=== PATIENT | female | born 1960 | race American Indian/Alaskan Native ===

== ENCOUNTER 2020-09-22 13:28 | Outpatient (CLI) | payer MEDICARE ==
--- NOTE | 2020-09-22 15:26 | XRay Report ---
RIGHT KNEE 3 VIEWS INDICATION / CLINICAL INFORMATION: right knee pain. COMPARISON: None available. FINDINGS: Moderate degenerative change, with significant loss of articular space medially. Hypertrophic spurrin g in the patellofemoral joint. No acute fracture. No evidence of significant joint effusion or hemart hrosis. Signer Name: Jordan Dale MD Signed: 09/22/2020 3:22 PM Workstation Name: [id number]
== END 2020-09-22 13:29 | disposition home or self-care (01) ==
LOC: XRAY 13:28
DX: M17.11 Unilateral primary osteoarthritis, right knee (principal); M76.9 Unspecified enthesopathy, lower limb, excluding foot

== ENCOUNTER 2022-03-13 03:17 | Inpatient (IN) | payer MEDICARE ==
[2022-03-13 04:23] LABS: Hematocrit 30.7 % (30.3-42.9); Hemoglobin 9.8 gm/dl (10.1-14.3); Mean Corpuscular HGB Conc 32 % (30-34); Mean Corpuscular Volume 80 fl (79-97); Platelet Count 400 K/mm3 (140-440); Red Blood Count 3.83 M/mm3 (3.65-5.03); Red Cell Distribution Width 16.5 % (13.2-15.2)
[2022-03-13 04:28] LABS: Albumin 3.7 g/dL (3.9-5); Calcium 9.4 mg/dL (8.4-10.2)
[2022-03-13 05:23] LABS: Anisocytosis 1+; Eosinophils % (Manual) 0 % (0.0-4.3); Platelet Estimate Consistent w Auto; Total Cells Counted 100
[2022-03-13] MEDS ORDERED: SODIUM CHLORIDE 0.9% 1000 ML 1,000 ML IV ONE (12:21)
[2022-03-13] MEDS ORDERED: metroNIDAZOLE/NS 500 MG/100 ML 500 MG/100 ML BAG IV ONE (12:21)
[2022-03-13] MEDS ORDERED: SODIUM CHLORIDE 0.9% IV ONE (12:24)
[2022-03-13] MEDS ORDERED: ONDANSETRON 4 MG/2 ML INJ IV ONE (13:02)
[2022-03-13] MEDS ORDERED: MORPHINE 4 MG/1 ML INJ IV ONE (13:02)
[2022-03-13 15:09] LABS: Bilirubin,Urine NEG (Negative); Blood,Urine NEG (Negative); Color,Urine Yellow (Yellow); Protein,Urine <15 mg/dL mg/dL (Negative); Urobilinogen,Urine < 2.0 mg/dL (<2.0)
[2022-03-13 15:11] LABS: Hyaline Casts,Urine 26 /LPF; Mucus,Urine FEW /HPF
--- NOTE | 2022-03-13 15:13 | Cat Scan Report ---
CT ABDOMEN AND PELVIS WITH CONTRAST INDICATION: abd pain with n/v CONTRAST: 100 cc Omnipaque 300 IV COMPARISON: None available. All CT scans at this location are performed using CT dose reduction for ALARA by means of automated e xposure control. NOTE: Resolution is decreased and artifact is introduced by the patient's size. FINDINGS: Lung bases show mild atelectatic changes but no definite pneumonic infiltrates. No pneumope ritoneum. Gallbladder removed. Mild extrahepatic and intrahepatic biliary prominence with common bile duct at the level the head of the pancreas measuring 8 mm. Liver is enlarged with a length of 21.4 c m but no focal lesions seen. Spleen not enlarged. Tiny probable left renal cyst. Minimal right nephro lithiasis without obstructive change seen. No other abdominal masses. No lymphadenopathy. No bowel obstruction. Colonic diverticulosis most noticeable in the sigmoid area. In the upper to mid sigmoid area in this area of diverticulosis there is moderate inflammation and wall thickening consi stent with acute diverticulitis. I do not clearly see intramural abscess or significant perforation l ocally. No evidence of free perforation. Mild stranding in the area but no organized fluid collection s. No obstructive change. Appendix not visualized. No other pelvic masses though possibly there is a small left ovarian cyst measuring 17 mm. IMPRESSION: 1. Moderate acute sigmoid diverticulitis without definite complication 2. Small left ovarian cyst unusual at the patient's age. Recommend follow-up but probably this is clarissa ign. 3. Right minimal nephrolithiasis without acute change seen 4. Mild biliary prominence in a postcholecystectomy patient of unknown chronicity. Recommend clinical correlation. Signer Name: Brian Rivas MD Signed: 03/13/2022 3:08 PM Workstation Name: [id number]
--- NOTE | 2022-03-13 15:35 | Emergency Department Report ---
ED Abdominal Pain HPI - General Chief Complaint: Abdominal Pain Stated Complaint: RIGHT SIDE PAIN Time Seen by Provider: 03/13/22 12:21 Source: patient Mode of arrival: Ambulatory Limitations: No Limitations - History of Present Illness Initial Comments: This is a 61-year-old female nontoxic, well nourished in appearance, no acute signs of distress presents to the ED with c/o of nausea and vomiting and abdominal pain several days. Patient describes vomiting as food content and yellow gastric acid. Patient describes abdominal pain as cramping and aching with level of 8/10 diffuse. Patient denies chest pain, short of breath, fever, hemoptysis, blood in stool, chills, headache, stiff neck, numbness or tingling. Patient denies any diarrhea or constipation. Denies any blood in stool. Patient denies any recent travels. Patient stated allergies to sulfa. MD Complaint: abdominal pain -: days(s) Location: diffuse Radiation: none Migration to: no migration Severity: mild Severity scale (0 -10): 8 Quality: cramping, aching Consistency: constant Improves With: nothing Worsens With: nothing Associated Symptoms: nausea, vomiting. denies: diarrhea, fever, chills, constipation, dysuria, hematemesis, hematochezia, melena, hematuria, anorexia, syncope - Related Data Allergies Allergy/AdvReac Type Severity Reaction Status Date / Time Sulfa (Sulfonamide Allergy Hives Verified 03/13/22 03:20 Antibiotics) ED Review of Systems ROS: Stated complaint: RIGHT SIDE PAIN Other details as noted in HPI Comment: All other systems reviewed and negative Constitutional: denies: chills, fever Eyes: denies: eye pain, eye discharge, vision change ENT: denies: ear pain, throat pain Respiratory: denies: cough, shortness of breath, wheezing Cardiovascular: denies: chest pain, palpitations Endocrine: no symptoms reported Gastrointestinal: abdominal pain, nausea, vomiting. denies: diarrhea, constipation, hematemesis, melena, hematochezia Genitourinary: denies: urgency, dysuria, discharge Musculoskeletal: denies: back pain, joint swelling, arthralgia Skin: denies: rash, lesions Neurological: denies: headache, weakness, paresthesias Psychiatric: denies: anxiety, depression Hematological/Lymphatic: denies: easy bleeding, easy bruising ED Past Medical Hx - Past Medical History Previous Medical History?: Yes Hx Hypertension: Yes - Surgical History Past Surgical History?: No - Social History Smoking Status: Never Smoker Substance Use Type: None ED Physical Exam - General Limitations: No Limitations General appearance: alert, in no apparent distress - Head Head exam: Present: atraumatic, normocephalic - Eye Eye exam: Present: normal appearance - Neck Neck exam: Present: normal inspection, full ROM. Absent: tenderness, meningismus, lymphadenopathy - Respiratory Respiratory exam: Present: normal lung sounds bilaterally. Absent: respiratory distress, wheezes, rales, rhonchi, stridor, chest wall tenderness, accessory muscle use, decreased breath sounds, prolonged expiratory - Cardiovascular Cardiovascular Exam: Present: normal rhythm, tachycardia, normal heart sounds. Absent: irregular rhythm, systolic murmur, diastolic murmur, rubs, gallop - GI/Abdominal GI/Abdominal exam: Present: soft, tenderness (diffuse), normal bowel sounds. Absent: distended, guarding, rebound, rigid, diminished bowel sounds - Extremities Exam Extremities exam: Present: normal inspection, full ROM, normal capillary refill. Absent: tenderness - Back Exam Back exam: Present: normal inspection, full ROM. Absent: tenderness, CVA tenderness (R), CVA tenderness (L), muscle spasm, paraspinal tenderness, vertebral tenderness, rash noted - Neurological Exam Neurological exam: Present: alert, oriented X3, normal gait - Psychiatric Psychiatric exam: Present: normal affect, normal mood - Skin Skin exam: Present: warm, dry, intact, normal color. Absent: rash ED Course Vital Signs 03/13/22 03/13/22 03:20 16:54 Temperature 99.0 F 98.0 F Pulse Rate 104 H 94 H Respiratory 18 20 Rate Blood Pressure 95/54 Blood Pressure 112/53 [Left] O2 Sat by Pulse 96 96 Oximetry - Reevaluation(s) Reevaluation #1: 03/13/22 15:33 Patient is speaking in full sentences with no signs of distress noted. - Consultations Consultation #1: 03/13/22 15:36 Patient has been consulted with Dr. Fregoso about patient history, physical exam, and labs/imaging results and accepts patient to services. Consultation #2: 03/13/22 15:44 Patient has been consulted with Jerod Fisher (general surgery) about patient history, physical exam, and labs/imaging results and agrees for admission with hospitalist. ED Medical Decision Making - Lab Data Result diagrams: 03/13/22 03:48 03/13/22 03:48 Lab Results 03/13/22 03/13/22 03/13/22 Range/Units 03:48 03:48 13:14 WBC 18.3 H (4.5-11.0) K/mm3 RBC 3.83 (3.65-5.03) M/mm3 Hgb 9.8 L (10.1-14.3) gm/dl Hct 30.7 (30.3-42.9) % MCV 80 (79-97) fl MCH 26 L (28-32) pg MCHC 32 (30-34) % RDW 16.5 H (13.2-15.2) % Plt Count 400 (140-440) K/mm3 Add Manual Diff Complete Total Counted 100 Seg Neuts % (Manual) 84.0 H (40.0-70.0) % Band Neutrophils % 0 % Lymphocytes % (Manual) 9.0 L (13.4-35.0) % Reactive Lymphs % (Man) 0 % Monocytes % (Manual) 6.0 (0.0-7.3) % Eosinophils % (Manual) 0 (0.0-4.3) % Basophils % (Manual) 1.0 (0.0-1.8) % Metamyelocytes % 0 % Myelocytes % 0 % Promyelocytes % 0 % Blast Cells % 0 % Nucleated RBC % Not Reportable Seg Neutrophils # Man 15.4 H (1.8-7.7) K/mm3 Band Neutrophils # 0.0 K/mm3 Lymphocytes # (Manual) 1.6 (1.2-5.4) K/mm3 Abs React Lymphs (Man) 0.0 K/mm3 Monocytes # (Manual) 1.1 H (0.0-0.8) K/mm3 Eosinophils # (Manual) 0.0 (0.0-0.4) K/mm3 Basophils # (Manual) 0.2 H (0.0-0.1) K/mm3 Metamyelocytes # 0.0 K/mm3 Myelocytes # 0.0 K/mm3 Promyelocytes # 0.0 K/mm3 Blast Cells # 0.0 K/mm3 WBC Morphology Not Reportable Hypersegmented Neuts Not Reportable Hyposegmented Neuts Not Reportable Hypogranular Neuts Not Reportable Smudge Cells Not Reportable Toxic Granulation Not Reportable Toxic Vacuolation Not Reportable Dohle Bodies Not Reportable Pelger-Huet Anomaly Not Reportable Niraj Rods Not Reportable Platelet Estimate Consistent w auto Clumped Platelets Not Reportable Plt Clumps, EDTA Not Reportable Large Platelets Not Reportable Giant Platelets Not Reportable Platelet Satelliting Not Reportable Plt Morphology Comment Not Reportable RBC Morphology Not Reportable Dimorphic RBCs Not Reportable Polychromasia Not Reportable Hypochromasia Not Reportable Poikilocytosis Not Reportable Anisocytosis 1+ Microcytosis Not Reportable Macrocytosis Not Reportable Spherocytes Not Reportable Pappenheimer Bodies Not Reportable Sickle Cells Not Reportable Target Cells Not Reportable Tear Drop Cells Not Reportable Ovalocytes Not Reportable Helmet Cells Not Reportable Hamm-[place] Bodies Not Reportable [place] Rings Not Reportable [place] Cells Not Reportable Bite Cells Not Reportable Crenated Cell Not Reportable Elliptocytes Not Reportable Acanthocytes (Spur) Not Reportable Rouleaux Not Reportable Hemoglobin C Crystals Not Reportable Schistocytes Not Reportable Malaria parasites Not Reportable Chacorta Bodies Not Reportable Hem Pathologist Commnt No Sodium 136 L (137-145) mmol/L Potassium 3.6 (3.6-5.0) mmol/L Chloride 97.5 L (98-107) mmol/L Carbon Dioxide 25 (22-30) mmol/L Anion Gap 17 mmol/L BUN 19 H (7-17) mg/dL Creatinine 1.2 (0.6-1.2) mg/dL Estimated GFR 55 ml/min BUN/Creatinine Ratio 16 % Glucose 127 H (65-100) mg/dL Lactic Acid (0.7-2.0) mmol/L Calcium 9.4 (8.4-10.2) mg/dL Total Bilirubin 0.30 (0.1-1.2) mg/dL AST 14 (5-40) units/L ALT 20 (7-56) units/L Alkaline Phosphatase 130 H (35-129) units/L Total Protein 7.5 (6.3-8.2) g/dL Albumin 3.7 L (3.9-5) g/dL Albumin/Globulin Ratio 1.0 % Lipase 51 (13-60) units/L Urine Color (Yellow) Urine Turbidity (Clear) Urine pH (5.0-7.0) Ur Specific [place] (1.003-1.030) Urine Protein (Negative) mg/dL Urine Glucose (UA) (Negative) mg/dL Urine Ketones (Negative) mg/dL Urine Blood (Negative) Urine Nitrite (Negative) Urine Bilirubin (Negative) Urine Urobilinogen (<2.0) mg/dL Ur Leukocyte Esterase (Negative) Urine WBC (Auto) (0.0-6.0) /HPF Urine RBC (Auto) (0.0-6.0) /HPF U Epithel Cells (Auto) (0-13.0) /HPF Hyaline Casts /LPF Urine Mucus /HPF 03/13/22 03/13/22 Range/Units 13:14 Unknown WBC (4.5-11.0) K/mm3 RBC (3.65-5.03) M/mm3 Hgb (10.1-14.3) gm/dl Hct (30.3-42.9) % MCV (79-97) fl MCH (28-32) pg MCHC (30-34) % RDW (13.2-15.2) % Plt Count (140-440) K/mm3 Add Manual Diff Total Counted Seg Neuts % (Manual) (40.0-70.0) % Band Neutrophils % % Lymphocytes % (Manual) (13.4-35.0) % Reactive Lymphs % (Man) % Monocytes % (Manual) (0.0-7.3) % Eosinophils % (Manual) (0.0-4.3) % Basophils % (Manual) (0.0-1.8) % Metamyelocytes % % Myelocytes % % Promyelocytes % % Blast Cells % % Nucleated RBC % Seg Neutrophils # Man (1.8-7.7) K/mm3 Band Neutrophils # K/mm3 Lymphocytes # (Manual) (1.2-5.4) K/mm3 Abs React Lymphs (Man) K/mm3 Monocytes # (Manual) (0.0-0.8) K/mm3 Eosinophils # (Manual) (0.0-0.4) K/mm3 Basophils # (Manual) (0.0-0.1) K/mm3 Metamyelocytes # K/mm3 Myelocytes # K/mm3 Promyelocytes # K/mm3 Blast Cells # K/mm3 WBC Morphology Hypersegmented Neuts Hyposegmented Neuts Hypogranular Neuts Smudge Cells Toxic Granulation Toxic Vacuolation Dohle Bodies Pelger-Huet Anomaly Niraj Rods Platelet Estimate Clumped Platelets Plt Clumps, EDTA Large Platelets Giant Platelets Platelet Satelliting Plt Morphology Comment RBC Morphology Dimorphic RBCs Polychromasia Hypochromasia Poikilocytosis Anisocytosis Microcytosis Macrocytosis Spherocytes Pappenheimer Bodies Sickle Cells Target Cells Tear Drop Cells Ovalocytes Helmet Cells Hamm-[place] Bodies [place] Rings Tate Cells Bite Cells Crenated Cell Elliptocytes Acanthocytes (Spur) Rouleaux Hemoglobin C Crystals Schistocytes Malaria parasites Chacorta Bodies Hem Pathologist Commnt Sodium (137-145) mmol/L Potassium (3.6-5.0) mmol/L Chloride (98-107) mmol/L Carbon Dioxide (22-30) mmol/L Anion Gap mmol/L BUN (7-17) mg/dL Creatinine (0.6-1.2) mg/dL Estimated GFR ml/min BUN/Creatinine Ratio % Glucose (65-100) mg/dL Lactic Acid 0.80 (0.7-2.0) mmol/L Calcium (8.4-10.2) mg/dL Total Bilirubin (0.1-1.2) mg/dL AST (5-40) units/L ALT (7-56) units/L Alkaline Phosphatase (35-129) units/L Total Protein (6.3-8.2) g/dL Albumin (3.9-5) g/dL Albumin/Globulin Ratio % Lipase (13-60) units/L Urine Color Yellow (Yellow) Urine Turbidity Slightly-cloudy (Clear) Urine pH 5.0 (5.0-7.0) Ur Specific [place] 1.015 (1.003-1.030) Urine Protein <15 mg/dl (Negative) mg/dL Urine Glucose (UA) Neg (Negative) mg/dL Urine Ketones Neg (Negative) mg/dL Urine Blood Neg (Negative) Urine Nitrite Neg (Negative) Urine Bilirubin Neg (Negative) Urine Urobilinogen < 2.0 (<2.0) mg/dL Ur Leukocyte Esterase Neg (Negative) Urine WBC (Auto) 6.0 (0.0-6.0) /HPF Urine RBC (Auto) 3.0 (0.0-6.0) /HPF U Epithel Cells (Auto) 3.0 (0-13.0) /HPF Hyaline Casts 26 /LPF Urine Mucus Few /HPF - Radiology Data [facility] [address] [place] [address] Cat Scan Report Signed Patient: POORNIMA SCOTT MR#: [id number] : 1960 Acct:[id number] Age/Sex: 61 / F ADM Date: 03/13/22 Loc: ED Attending Dr: Ordering Physician: TIMO FIGUEROA NP Date of Service: 03/13/22 Procedure(s): CT abdomen pelvis w con Accession Number(s): [id number] cc: TIMO FIGUEROA NP CT ABDOMEN AND PELVIS WITH CONTRAST INDICATION: abd pain with n/v CONTRAST: 100 cc Omnipaque 300 IV COMPARISON: None available. All CT scans at this location are performed using CT dose reduction for ALARA by means of automated exposure control. NOTE: Resolution is decreased and artifact is introduced by the patient's size. FINDINGS: Lung bases show mild atelectatic changes but no definite pneumonic infiltrates. No pneumoperitoneum. Gallbladder removed. Mild extrahepatic and intrahepatic biliary prominence with common bile duct at the level the head of the pancreas measuring 8 mm. Liver is enlarged with a length of 21.4 cm but no focal lesions seen. Spleen not enlarged. Tiny probable left renal cyst. Minimal right nephrolithiasis without obstructive change seen. No other abdominal masses. No lymphadenopathy. No bowel obstruction. Colonic diverticulosis most noticeable in the sigmoid area. In the upper to mid sigmoid area in this area of diverticulosis there is moderate inflammation and wall thickening consistent with acute diverticulitis. I do not clearly see intramural abscess or significant perforation locally. No evidence of free perforation. Mild stranding in the area but no organized fluid collections. No obstructive change. Appendix not visualized. No other pelvic masses though possibly there is a small left ovarian cyst measuring 17 mm. IMPRESSION: 1. Moderate acute sigmoid diverticulitis without definite complication 2. Small left ovarian cyst unusual at the patient's age. Recommend follow-up but probably this is benign. 3. Right minimal nephrolithiasis without acute change seen 4. Mild biliary prominence in a postcholecystectomy patient of unknown chronicity. Recommend clinical correlation. Signer Name: Brian Rivas MD Signed: 03/13/2022 3:08 PM Workstation Name: [id number] Transcribed By: MONIK Dictated By: Brian Rivas MD Electronically Authenticated By: Brian Rivas MD Signed Date/Time: 03/13/22 1508 DD/ 1459 TD/TT: - Medical Decision Making 61-year-old female that presents with acute diverticulitis of the sigmoid colon. Currently patient is stable and was examined by me. Patient received medical treatment with IV antibiotics in the ER. Patient is notified of the imaging results with no questions noted by the patient. Patient admitted with hospitalist. Consulted with surgery which agrees to admission and stated will see patient in follow-up. At time of admission, the patient does not seem toxic or ill in appearance. No acute signs of distress noted. Patient agrees to admission treatment plan of care. No further questions noted by the patient. Critical care attestation.: If time is entered above; I have spent that time in minutes in the direct care of this critically ill patient, excluding procedure time. ED Disposition Clinical Impression: Diverticulitis of sigmoid colon Disposition: ADMITTED INPATIENT Is pt being admited?: Yes Condition: Stable Instructions: Abdominal Pain (ED) Referrals: IVAN TRIPP MD [Primary Care Provider] - 3-5 Days Time of Disposition: 15:37
--- NOTE | 2022-03-13 20:32 | History and Physical Report ---
History of Present Illness Date of examination: 03/13/22 Date of admission: 03/13/2022 Chief complaint: Left lower quadrant pain for 2 days History of present illness: 61-year-old female presents to the emergency room with severe left lower quadrant pain and suprapubic pain. Abdominal pain for the last 48 hours. Associated with vomiting. No diarrhea. Pain is cramping and sharp. Intensity of pain is about 7-9 on a scale of 1-10. Patient had similar symptoms 3 years ago and was treated as diverticulitis. No recent travel. No melanotic stools. No hematemesis. No fever or chills. Food is a exacerbating factor no relieving factors - Past Medical History --Previous Medical History?: Yes --Hypertension --Diverticulitis--3 years ago - Surgical History --C-sections --Appendectomy --Cholecystectomy --Breast reduction --Achilles' heel surgery both ankles -- Hand surgery -- Arthroscope. --Full knee shoulder surgery - Social History --Smoking Status: Never Smoker --Substance Use Type: None Family history -- Htn Review of Systems ROS: Stated complaint: RIGHT SIDE PAIN Other details as noted in HPI Comment: All other systems reviewed and negative Constitutional: denies: chills, fever Eyes: denies: eye pain, eye discharge, vision change ENT: denies: ear pain, throat pain Respiratory: denies: cough, shortness of breath, wheezing Cardiovascular: denies: chest pain, palpitations Endocrine: no symptoms reported Gastrointestinal: abdominal pain, nausea, vomiting. denies: diarrhea, constipation, hematemesis, melena, hematochezia Genitourinary: denies: urgency, dysuria, discharge Musculoskeletal: denies: back pain, joint swelling, arthralgia Skin: denies: rash, lesions Neurological: denies: headache, weakness, paresthesias Psychiatric: denies: anxiety, depression Hematological/Lymphatic: denies: easy bleeding, easy bruising Medications and Allergies Allergies Allergy/AdvReac Type Severity Reaction Status Date / Time Sulfa (Sulfonamide Allergy Hives Verified 03/13/22 03:20 Antibiotics) Home Medications Medication Instructions Recorded Confirmed Last Taken Type Acetaminophen/Codeine [Tylenol 1 tab PO TID PRN 03/14/22 03/14/22 Unknown History /Codeine # 3 tab] FLUoxetine HCL [PROzac] 40 mg PO BID 03/14/22 03/14/22 Unknown History Omeprazole 40 mg PO DAILY 03/14/22 03/14/22 Unknown History lisinopriL [Lisinopril] 20 mg PO BID 03/14/22 03/14/22 Unknown History tiZANidine [Zanaflex 4mg TAB] 4 mg PO BID 03/14/22 03/14/22 Unknown History Exam - Constitutional Vitals: Temp Pulse Resp BP Pulse Ox 98.3 F 87 18 120/60 97 03/13/22 20:25 03/13/22 20:25 03/13/22 20:25 03/13/22 20:25 03/13/22 20:25 General appearance: Present: no acute distress, well-nourished - EENT Eyes: Present: PERRL ENT: hearing intact, clear oral mucosa - Neck Neck: Present: supple, normal ROM - Respiratory Respiratory effort: normal Respiratory: bilateral: CTA - Cardiovascular Heart rate: 78 Rhythm: regular Heart Sounds: Present: S1 & S2. Absent: rub, click - Extremities Extremities: pulses symmetrical, No edema Peripheral Pulses: within normal limits - Abdominal General gastrointestinal: Present: soft, tender, non-distended, normal bowel sounds Localized gastrointestinal: tender: RLQ, guarding: RLQ, rebound: RLQ Female genitourinary: Present: normal - Integumentary Integumentary: Present: clear, warm, dry - Musculoskeletal Musculoskeletal: gait normal, strength equal bilaterally - Psychiatric Psychiatric: appropriate mood/affect, intact judgment & insight - Neurologic Neurologic: CNII-XII intact, moves all extremities Results - Labs CBC & Chem 7: 03/14/22 05:24 03/14/22 05:24 Labs: Laboratory Last Values WBC 18.3 K/mm3 (4.5-11.0) H 03/13/22 03:48 RBC 3.83 M/mm3 (3.65-5.03) 03/13/22 03:48 Hgb 9.8 gm/dl (10.1-14.3) L 03/13/22 03:48 Hct 30.7 % (30.3-42.9) 03/13/22 03:48 MCV 80 fl (79-97) 03/13/22 03:48 MCH 26 pg (28-32) L 03/13/22 03:48 MCHC 32 % (30-34) 03/13/22 03:48 RDW 16.5 % (13.2-15.2) H 03/13/22 03:48 Plt Count 400 K/mm3 (140-440) 03/13/22 03:48 Add Manual Diff Complete 03/13/22 03:48 Total Counted 100 03/13/22 03:48 Seg Neuts % (Manual) 84.0 % (40.0-70.0) H 03/13/22 03:48 Band Neutrophils % 0 % 03/13/22 03:48 Lymphocytes % (Manual) 9.0 % (13.4-35.0) L 03/13/22 03:48 Reactive Lymphs % (Man) 0 % 03/13/22 03:48 Monocytes % (Manual) 6.0 % (0.0-7.3) 03/13/22 03:48 Eosinophils % (Manual) 0 % (0.0-4.3) 03/13/22 03:48 Basophils % (Manual) 1.0 % (0.0-1.8) 03/13/22 03:48 Metamyelocytes % 0 % 03/13/22 03:48 Myelocytes % 0 % 03/13/22 03:48 Promyelocytes % 0 % 03/13/22 03:48 Blast Cells % 0 % 03/13/22 03:48 Nucleated RBC % Not Reportable 03/13/22 03:48 Seg Neutrophils # Man 15.4 K/mm3 (1.8-7.7) H 03/13/22 03:48 Band Neutrophils # 0.0 K/mm3 03/13/22 03:48 Lymphocytes # (Manual) 1.6 K/mm3 (1.2-5.4) 03/13/22 03:48 Abs React Lymphs (Man) 0.0 K/mm3 03/13/22 03:48 Monocytes # (Manual) 1.1 K/mm3 (0.0-0.8) H 03/13/22 03:48 Eosinophils # (Manual) 0.0 K/mm3 (0.0-0.4) 03/13/22 03:48 Basophils # (Manual) 0.2 K/mm3 (0.0-0.1) H 03/13/22 03:48 Metamyelocytes # 0.0 K/mm3 03/13/22 03:48 Myelocytes # 0.0 K/mm3 03/13/22 03:48 Promyelocytes # 0.0 K/mm3 03/13/22 03:48 Blast Cells # 0.0 K/mm3 03/13/22 03:48 WBC Morphology Not Reportable 03/13/22 03:48 Hypersegmented Neuts Not Reportable 03/13/22 03:48 Hyposegmented Neuts Not Reportable 03/13/22 03:48 Hypogranular Neuts Not Reportable 03/13/22 03:48 Smudge Cells Not Reportable 03/13/22 03:48 Toxic Granulation Not Reportable 03/13/22 03:48 Toxic Vacuolation Not Reportable 03/13/22 03:48 Dohle Bodies Not Reportable 03/13/22 03:48 Pelger-Huet Anomaly Not Reportable 03/13/22 03:48 Niraj Rods Not Reportable 03/13/22 03:48 Platelet Estimate Consistent w auto 03/13/22 03:48 Clumped Platelets Not Reportable 03/13/22 03:48 Plt Clumps, EDTA Not Reportable 03/13/22 03:48 Large Platelets Not Reportable 03/13/22 03:48 Giant Platelets Not Reportable 03/13/22 03:48 Platelet Satelliting Not Reportable 03/13/22 03:48 Plt Morphology Comment Not Reportable 03/13/22 03:48 RBC Morphology Not Reportable 03/13/22 03:48 Dimorphic RBCs Not Reportable 03/13/22 03:48 Polychromasia Not Reportable 03/13/22 03:48 Hypochromasia Not Reportable 03/13/22 03:48 Poikilocytosis Not Reportable 03/13/22 03:48 Anisocytosis 1+ 03/13/22 03:48 Microcytosis Not Reportable 03/13/22 03:48 Macrocytosis Not Reportable 03/13/22 03:48 Spherocytes Not Reportable 03/13/22 03:48 Pappenheimer Bodies Not Reportable 03/13/22 03:48 Sickle Cells Not Reportable 03/13/22 03:48 Target Cells Not Reportable 03/13/22 03:48 Tear Drop Cells Not Reportable 03/13/22 03:48 Ovalocytes Not Reportable 03/13/22 03:48 Helmet Cells Not Reportable 03/13/22 03:48 Hamm-[place] Bodies Not Reportable 03/13/22 03:48 [place] Rings Not Reportable 03/13/22 03:48 Tate Cells Not Reportable 03/13/22 03:48 Bite Cells Not Reportable 03/13/22 03:48 Crenated Cell Not Reportable 03/13/22 03:48 Elliptocytes Not Reportable 03/13/22 03:48 Acanthocytes (Spur) Not Reportable 03/13/22 03:48 Rouleaux Not Reportable 03/13/22 03:48 Hemoglobin C Crystals Not Reportable 03/13/22 03:48 Schistocytes Not Reportable 03/13/22 03:48 Malaria parasites Not Reportable 03/13/22 03:48 Chacorta Bodies Not Reportable 03/13/22 03:48 Hem Pathologist Commnt No 03/13/22 03:48 Sodium 136 mmol/L (137-145) L 03/13/22 03:48 Potassium 3.6 mmol/L (3.6-5.0) 03/13/22 03:48 Chloride 97.5 mmol/L (98-107) L 03/13/22 03:48 Carbon Dioxide 25 mmol/L (22-30) 03/13/22 03:48 Anion Gap 17 mmol/L 03/13/22 03:48 BUN 19 mg/dL (7-17) H 03/13/22 03:48 Creatinine 1.2 mg/dL (0.6-1.2) 03/13/22 03:48 Estimated GFR 55 ml/min 03/13/22 03:48 BUN/Creatinine Ratio 16 % 03/13/22 03:48 Glucose 127 mg/dL (65-100) H 03/13/22 03:48 Lactic Acid 0.80 mmol/L (0.7-2.0) 03/13/22 13:14 Calcium 9.4 mg/dL (8.4-10.2) 03/13/22 03:48 Total Bilirubin 0.30 mg/dL (0.1-1.2) 03/13/22 03:48 AST 14 units/L (5-40) 03/13/22 03:48 ALT 20 units/L (7-56) 03/13/22 03:48 Alkaline Phosphatase 130 units/L (35-129) H 03/13/22 03:48 Total Protein 7.5 g/dL (6.3-8.2) 03/13/22 03:48 Albumin 3.7 g/dL (3.9-5) L 03/13/22 03:48 Albumin/Globulin Ratio 1.0 % 03/13/22 03:48 Lipase 51 units/L (13-60) 03/13/22 13:14 Urine Color Yellow (Yellow) 03/13/22 Unknown Urine Turbidity Slightly-cloudy (Clear) 03/13/22 Unknown Urine pH 5.0 (5.0-7.0) 03/13/22 Unknown Ur Specific [place] 1.015 (1.003-1.030) 03/13/22 Unknown Urine Protein <15 mg/dl mg/dL (Negative) 03/13/22 Unknown Urine Glucose (UA) Neg mg/dL (Negative) 03/13/22 Unknown Urine Ketones Neg mg/dL (Negative) 03/13/22 Unknown Urine Blood Neg (Negative) 03/13/22 Unknown Urine Nitrite Neg (Negative) 03/13/22 Unknown Urine Bilirubin Neg (Negative) 03/13/22 Unknown Urine Urobilinogen < 2.0 mg/dL (<2.0) 03/13/22 Unknown Ur Leukocyte Esterase Neg (Negative) 03/13/22 Unknown Urine WBC (Auto) 6.0 /HPF (0.0-6.0) 03/13/22 Unknown Urine RBC (Auto) 3.0 /HPF (0.0-6.0) 03/13/22 Unknown U Epithel Cells (Auto) 3.0 /HPF (0-13.0) 03/13/22 Unknown Hyaline Casts 26 /LPF 03/13/22 Unknown Urine Mucus Few /HPF 03/13/22 Unknown Short CBC 03/14/22 Range/Units 05:24 WBC 11.2 H (4.5-11.0) K/mm3 Hgb 9.0 L (10.1-14.3) gm/dl Hct 28.9 L (30.3-42.9) % Plt Count 342 (140-440) K/mm3 BMP 03/14/22 05:24 Sodium 140 Potassium 3.7 Chloride 103.7 Carbon Dioxide 23 BUN 17 Creatinine 1.1 Glucose 97 Calcium 8.9 Liver Function 03/14/22 Range/Units 05:24 Total Bilirubin 0.30 (0.1-1.2) mg/dL AST 9 (5-40) units/L ALT 14 (7-56) units/L Alkaline Phosphatase 109 (35-129) units/L Albumin 3.3 L (3.9-5) g/dL Urine 03/13/22 Range/Units Unknown Urine Color Yellow (Yellow) Urine pH 5.0 (5.0-7.0) Ur Specific [place] 1.015 (1.003-1.030) Urine Protein <15 mg/dl (Negative) mg/dL Urine Glucose (UA) Neg (Negative) mg/dL Microbiology: Microbiology 03/13/22 13:14 Peripheral/Venous Blood Culture - Preliminary Culture in Progress 03/13/22 13:14 Peripheral/Venous Blood Culture - Preliminary Culture in Progress - Imaging and Cardiology CT scan - abdomen: report reviewed Imaging and Cardiology: Abdomen/pelvis CT Moderate acute sigmoid diverticulitis without definite complication Small left ovarian cyst unusual of the patient's age. Recommend follow-up nephrology with benign Right minimal nephrolithiasis without acute change Mild bilateral prominence postcholecystectomy patient of unknown chronicity recommend clinical correlation. Assessment and Plan Advance Directives: Yes (Full code) VTE prophylaxis?: Chemical Plan of care discussed with patient/family: Yes - Patient Problems (1) SIRS (systemic inflammatory response syndrome) Current Visit: Yes Status: Acute Plan to address problem: Patient with high white count Consistent with systemic inflammatory response syndrome Patient has diverticulitis (2) Diverticulitis of sigmoid colon Current Visit: Yes Status: Acute Plan to address problem: Keep patient n.p.o. IV Zosyn and IV Flagyl Conservative treatment Surgery consult requested (3) Hypertension Current Visit: Yes Status: Chronic Qualifiers: Hypertension type: primary hypertension Qualified Code(s): I10 - Essential (primary) hypertension Plan to address problem: Catapres patch if necessary (4) DVT prophylaxis Current Visit: Yes Status: Acute Plan to address problem: On heparin and GI prophylaxis (5) Advance care planning Current Visit: Yes Status: Acute Plan to address problem: Disease education conducted, care plan discussed, diagnosis discussed, prognosis discussed and patient acknowledges understanding with care plan. +30 minutes.
[2022-03-13] MEDS ORDERED: ONDANSETRON 4 MG/2 ML INJ IV PRN (20:35)
[2022-03-13] MEDS ORDERED: METOCLOPRAMIDE 10 MG/2 ML INJ IV PRN (20:35)
[2022-03-13] MEDS ORDERED: ACETAMINOPHEN 650 MG RECT SUPP PR PRN (20:35)
[2022-03-13] MEDS: HYDROmorphone 0.5 MG/0.5 ML INJ IV PRN (20:50)
--- NOTE | 2022-03-13 20:51 | Consultation ---
History of Present Illness Consult date: 03/13/22 Reason for consult: abdominal pain - History of present illness History of present illness: This is a 61-year-old female nontoxic, well nourished in appearance, no acute signs of distress presents to the ED with c/o of nausea and vomiting and abdominal pain several days. Patient describes vomiting as food content and yellow gastric acid. Patient describes abdominal pain as cramping and aching with level of 8/10 diffuse. Patient denies chest pain, short of breath, fever, hemoptysis, blood in stool, chills, headache, stiff neck, numbness or tingling. Patient denies any diarrhea or constipation. Denies any blood in stool. Patient denies any recent travels. Patient stated allergies to sulfa. Patient notes that she has had an episode of diverticulitis in the past. The pain severity and location is similar to her last attack about 3 to 4 years ago. Last colonoscopy was 6 years ago and showed some polyps. She was scheduled for a colonoscopy in a week or 2 for management of iron deficiency anemia. CT scan of the abdomen pelvis is completed showing sigmoid diverticulitis uncomplicated. Patient's WBC count is elevated 18,000. Since admission her nausea and vomiting has decreased markedly and the patient would like to try some liquid at this time. Medications and Allergies Allergies Allergy/AdvReac Type Severity Reaction Status Date / Time Sulfa (Sulfonamide Allergy Hives Verified 03/13/22 03:20 Antibiotics) Active Meds: Active Medications Acetaminophen (Acetaminophen 650 Mg Rect Supp) 650 mg NE Q4H PRN PRN Reason: Pain MILD(1-3)/Fever >100.5/PARRA Heparin Sodium (Porcine) (Heparin 5,000 Unit/1 Ml Vial) 5,000 unit SUB-Q Q12HR [facility] Hydromorphone HCl (Hydromorphone 0.5 Mg/0.5 Ml Inj) 0.5 mg IV Q3H PRN PRN Reason: Pain , Severe (7-10) Sodium Chloride (Nacl 0.9% 1000 Ml) 1,000 mls @ 75 mls/hr IV DIRECT [facility] Piperacillin Sod/Tazobactam Sod (Zosyn/Ns 4.5gm/100ml) 4.5 gm in 100 mls @ 200 mls/hr IV Q8HR [facility]; Protocol Metronidazole (Flagyl 500 Mg/100 Ml) 500 mg in 100 mls @ 100 mls/hr IV Q8HR [facility]; Protocol Metoclopramide HCl (Metoclopramide 10 Mg/2 Ml Inj) 10 mg IV Q6H PRN PRN Reason: Nausea And Vomiting Morphine Sulfate (Morphine 2 Mg/1 Ml Inj) 2 mg IV Q4H PRN PRN Reason: Pain, Moderate (4-6) Ondansetron HCl (Ondansetron 4 Mg/2 Ml Inj) 4 mg IV Q3H PRN PRN Reason: Nausea And Vomiting Sodium Chloride (Sodium Chloride 0.9% 10 Ml Flush Syringe) 10 ml IV BID [facility] Stop: 03/23/22 23:59 Sodium Chloride (Sodium Chloride 0.9% 10 Ml Flush Syringe) 10 ml IV PRN PRN PRN Reason: LINE FLUSH Exam Vital Signs Temp Pulse Resp BP Pulse Ox 99.0 F 104 H 18 95/54 96 03/13/22 03:20 03/13/22 03:20 03/13/22 03:20 03/13/22 03:20 03/13/22 03:20 - General physical appearance Positive: well developed - Eyes Positive: PERRL - Neck Positive: no masses, no bruits, trachea midline - Respiratory Positive: normal expansion - Cardiovascular Rhythm: regular - Extremities Extremities: no ischemia, No edema - Abdomen Abdomen: Present: soft, tender, bowel sounds normal. Absent: distended, masses, rebound Hernia: none - Integumentary no rash - Neurologic Neurologic: alert and oriented to time, place and person, motor strength and sensation are grossly intact, CN II-XII intact Results - Labs 03/13/22 03:48 03/13/22 03:48 Abnormal lab results 03/13/22 03/13/22 Range/Units 03:48 03:48 WBC 18.3 H (4.5-11.0) K/mm3 Hgb 9.8 L (10.1-14.3) gm/dl MCH 26 L (28-32) pg RDW 16.5 H (13.2-15.2) % Seg Neuts % (Manual) 84.0 H (40.0-70.0) % Lymphocytes % (Manual) 9.0 L (13.4-35.0) % Seg Neutrophils # Man 15.4 H (1.8-7.7) K/mm3 Monocytes # (Manual) 1.1 H (0.0-0.8) K/mm3 Basophils # (Manual) 0.2 H (0.0-0.1) K/mm3 Sodium 136 L (137-145) mmol/L Chloride 97.5 L (98-107) mmol/L BUN 19 H (7-17) mg/dL Glucose 127 H (65-100) mg/dL Alkaline Phosphatase 130 H (35-129) units/L Albumin 3.7 L (3.9-5) g/dL Diabetes panel 03/13/22 Range/Units 03:48 Sodium 136 L (137-145) mmol/L Potassium 3.6 (3.6-5.0) mmol/L Chloride 97.5 L (98-107) mmol/L Carbon Dioxide 25 (22-30) mmol/L BUN 19 H (7-17) mg/dL Creatinine 1.2 (0.6-1.2) mg/dL Glucose 127 H (65-100) mg/dL Calcium 9.4 (8.4-10.2) mg/dL AST 14 (5-40) units/L ALT 20 (7-56) units/L Alkaline Phosphatase 130 H (35-129) units/L Total Protein 7.5 (6.3-8.2) g/dL Albumin 3.7 L (3.9-5) g/dL Calcium panel 03/13/22 Range/Units 03:48 Calcium 9.4 (8.4-10.2) mg/dL Albumin 3.7 L (3.9-5) g/dL Pituitary panel 03/13/22 Range/Units 03:48 Sodium 136 L (137-145) mmol/L Potassium 3.6 (3.6-5.0) mmol/L Chloride 97.5 L (98-107) mmol/L Carbon Dioxide 25 (22-30) mmol/L BUN 19 H (7-17) mg/dL Creatinine 1.2 (0.6-1.2) mg/dL Glucose 127 H (65-100) mg/dL Calcium 9.4 (8.4-10.2) mg/dL Adrenal panel 03/13/22 Range/Units 03:48 Sodium 136 L (137-145) mmol/L Potassium 3.6 (3.6-5.0) mmol/L Chloride 97.5 L (98-107) mmol/L Carbon Dioxide 25 (22-30) mmol/L BUN 19 H (7-17) mg/dL Creatinine 1.2 (0.6-1.2) mg/dL Glucose 127 H (65-100) mg/dL Calcium 9.4 (8.4-10.2) mg/dL Total Bilirubin 0.30 (0.1-1.2) mg/dL AST 14 (5-40) units/L ALT 20 (7-56) units/L Alkaline Phosphatase 130 H (35-129) units/L Total Protein 7.5 (6.3-8.2) g/dL Albumin 3.7 L (3.9-5) g/dL Assessment and Plan 61-year-old -German lady with sigmoid diverticulitis. Agree with plans for limited p.o. intake, clear liquids should be appropriate at this time. IV antibiotics and IV fluids. We will continue to follow patient with you.
[2022-03-13] MEDS: PIPERACIL/TAZOBACTA 4.5/NS 100 4.5 GM/100 ML VIAL IV SCH (22:00)
[2022-03-13] MEDS: metroNIDAZOLE/NS 500 MG/100 ML 500 MG/100 ML BAG IV SCH (22:00)
[2022-03-13] MEDS: HEPARIN 5,000 UNIT/1 ML VIAL SUB-Q SCH (23:54)
[2022-03-14] MEDS: SODIUM CHLORIDE 0.9% 1000 ML 1,000 ML IV SCH ×2 (00:54→14:48)
[2022-03-14] MEDS: HYDROmorphone 0.5 MG/0.5 ML INJ IV PRN ×3 (02:00→16:21)
[2022-03-14] MEDS: PIPERACIL/TAZOBACTA 4.5/NS 100 4.5 GM/100 ML VIAL IV SCH (05:04)
[2022-03-14 06:06] LABS: Basophils # (Auto) 0.1 K/mm3 (0.0-0.1); Basophils % (Auto) 0.6 % (0.0-1.8); Eosinophils # (Auto) 0.1 K/mm3 (0.0-0.4); Eosinophils % (Auto) 1.2 % (0.0-4.3); Hematocrit 28.9 % (30.3-42.9); Lymphocytes # (Auto) 2.8 K/mm3 (1.2-5.4); Lymphocytes % (Auto) 24.6 % (13.4-35.0); Mean Corpuscular HGB Conc 31 % (30-34); Mean Corpuscular Volume 81 fl (79-97); Monocytes # (Auto) 0.9 K/mm3 (0.0-0.8); Monocytes % (Auto) 8.4 % (0.0-7.3); Platelet Count 342 K/mm3 (140-440); Red Blood Count 3.56 M/mm3 (3.65-5.03); Red Cell Distribution Width 16.3 % (13.2-15.2)
[2022-03-14] MEDS: metroNIDAZOLE/NS 500 MG/100 ML 500 MG/100 ML BAG IV SCH ×3 (06:13→23:15)
[2022-03-14 06:31] LABS: Alanine Aminotransferase 14 units/L (7-56); Albumin 3.3 g/dL (3.9-5); BUN/Creatinine Ratio 15; Blood Urea Nitrogen 17 mg/dL (7-17); Calcium 8.9 mg/dL (8.4-10.2); Hemolysis Index 0
--- NOTE | 2022-03-14 09:51 | Progress Note ---
Assessment and Plan 61-year-old -[place] lady with sigmoid diverticulitis. Agree with plans for limited p.o. intake, clear liquids should be appropriate at this time. IV antibiotics and IV fluids. We will continue to follow patient with you. Subjective Date of service: 03/14/22 Patient Reports: Positive: no new complaints, feels better Narrative: Patient feeling better this morning. White count was 18,000 is decreased to 11,200. She is tolerating clear liquids will advance to full liquids this morning. She is also with an iron deficiency anemia and will need a cscopy to work up the diverticulitis. Objective Vital Signs - 12hr 03/14/22 03/14/22 00:24 02:00 Temperature 98.9 F Pulse Rate 99 H Respiratory 20 18 Rate Blood Pressure 129/68 O2 Sat by Pulse 96 100 Oximetry - Labs 03/14/22 05:24 03/14/22 05:24 Diabetes panel 03/14/22 Range/Units 05:24 Sodium 140 (137-145) mmol/L Potassium 3.7 (3.6-5.0) mmol/L Chloride 103.7 (98-107) mmol/L Carbon Dioxide 23 (22-30) mmol/L BUN 17 (7-17) mg/dL Creatinine 1.1 (0.6-1.2) mg/dL Glucose 97 (65-100) mg/dL Calcium 8.9 (8.4-10.2) mg/dL AST 9 (5-40) units/L ALT 14 (7-56) units/L Alkaline Phosphatase 109 (35-129) units/L Total Protein 6.8 (6.3-8.2) g/dL Albumin 3.3 L (3.9-5) g/dL Calcium panel 03/14/22 Range/Units 05:24 Calcium 8.9 (8.4-10.2) mg/dL Albumin 3.3 L (3.9-5) g/dL Pituitary panel 03/14/22 Range/Units 05:24 Sodium 140 (137-145) mmol/L Potassium 3.7 (3.6-5.0) mmol/L Chloride 103.7 (98-107) mmol/L Carbon Dioxide 23 (22-30) mmol/L BUN 17 (7-17) mg/dL Creatinine 1.1 (0.6-1.2) mg/dL Glucose 97 (65-100) mg/dL Calcium 8.9 (8.4-10.2) mg/dL Adrenal panel 03/14/22 Range/Units 05:24 Sodium 140 (137-145) mmol/L Potassium 3.7 (3.6-5.0) mmol/L Chloride 103.7 (98-107) mmol/L Carbon Dioxide 23 (22-30) mmol/L BUN 17 (7-17) mg/dL Creatinine 1.1 (0.6-1.2) mg/dL Glucose 97 (65-100) mg/dL Calcium 8.9 (8.4-10.2) mg/dL Total Bilirubin 0.30 (0.1-1.2) mg/dL AST 9 (5-40) units/L ALT 14 (7-56) units/L Alkaline Phosphatase 109 (35-129) units/L Total Protein 6.8 (6.3-8.2) g/dL Albumin 3.3 L (3.9-5) g/dL
[2022-03-14] MEDS: HEPARIN 5,000 UNIT/1 ML VIAL SUB-Q SCH ×2 (12:07→23:14)
[2022-03-14] MEDS: cefTRIAXone/NS 2 GM/100 ML 2 GM/100 ML BAG IV SCH (14:48)
--- NOTE | 2022-03-14 19:36 | Progress Note ---
Assessment and Plan Assessment and plan: Advance Directives: Yes (Full code) VTE prophylaxis?: Chemical Plan of care discussed with patient/family: Yes --SIRS (systemic inflammatory response syndrome) Patient with high white count Consistent with systemic inflammatory response syndrome Patient has diverticulitis -- Diverticulitis of sigmoid colon Keep patient n.p.o. IV Zosyn and IV Flagyl Conservative treatment Surgery consult requested Abdomen/pelvis CT Moderate acute sigmoid diverticulitis without definite complication Small left ovarian cyst unusual of the patient's age. Recommend follow-up nephrology with benign Right minimal nephrolithiasis without acute change Mild bilateral prominence postcholecystectomy patient of unknown chronicity recommend clinical correlation. --Hypertension Catapres patch if necessary --Moderate malnutrition; Nutrition supplements when patient is able to eat Supportive care Nutrition consult if needed --Moderate hypoalbuminemia; Nutrition supplements, supportive care --DVT prophylaxis On heparin and GI prophylaxis -- Advance care planning Disease education conducted, care plan discussed, diagnosis discussed, prognosis discussed and patient acknowledges understanding with care plan. +30 minutes. Closely monitor the patient and adjust management as needed Follow surgery evaluation and recommendation Patient started on clear liquids, advance diet as tolerated Plan of care reviewed with the patient, her nurse, and case management history of History Interval history: Have seen and examined the patient at the bedside Patient's chart and medications reviewed Patient is admitted with acute diverticulitis abdominal pain and nausea vomiting N.p.o. status, surgery I will evaluated the patient Patient complains of some vague abdominal discomfort Vital signs noted Hospitalist Physical - Constitutional Vitals: Temp Pulse Resp BP Pulse Ox 98.2 F 94 H 18 110/43 97 03/14/22 12:06 03/14/22 12:06 03/14/22 14:00 03/14/22 12:06 03/14/22 14:00 General appearance: Present: no acute distress, well-nourished - EENT Eyes: Present: PERRL, EOM intact - Neck Neck: Present: supple, normal ROM - Respiratory Respiratory effort: normal Respiratory: bilateral: diminished, negative: rales, rhonchi, wheezing - Cardiovascular Rhythm: regular Heart Sounds: Present: S1 & S2 - Extremities Extremities: no ischemia, No edema - Abdominal General gastrointestinal: soft, non-tender, non-distended, normal bowel sounds - Integumentary Integumentary: Present: clear, warm - Psychiatric Psychiatric: appropriate mood/affect, cooperative - Neurologic Neurologic: moves all extremities Results - Labs CBC & Chem 7: 03/15/22 05:25 03/14/22 05:24 Labs: Laboratory Last Values WBC 11.2 K/mm3 (4.5-11.0) H 03/14/22 05:24 RBC 3.56 M/mm3 (3.65-5.03) L 03/14/22 05:24 Hgb 9.0 gm/dl (10.1-14.3) L 03/14/22 05:24 Hct 28.9 % (30.3-42.9) L 03/14/22 05:24 MCV 81 fl (79-97) 03/14/22 05:24 MCH 25 pg (28-32) L 03/14/22 05:24 MCHC 31 % (30-34) 03/14/22 05:24 RDW 16.3 % (13.2-15.2) H 03/14/22 05:24 Plt Count 342 K/mm3 (140-440) 03/14/22 05:24 Lymph % (Auto) 24.6 % (13.4-35.0) 03/14/22 05:24 [place] % (Auto) 8.4 % (0.0-7.3) H 03/14/22 05:24 Eos % (Auto) 1.2 % (0.0-4.3) 03/14/22 05:24 Baso % (Auto) 0.6 % (0.0-1.8) 03/14/22 05:24 Lymph # (Auto) 2.8 K/mm3 (1.2-5.4) 03/14/22 05:24 [place] # (Auto) 0.9 K/mm3 (0.0-0.8) H 03/14/22 05:24 Eos # (Auto) 0.1 K/mm3 (0.0-0.4) 03/14/22 05:24 Baso # (Auto) 0.1 K/mm3 (0.0-0.1) 03/14/22 05:24 Add Manual Diff Complete 03/13/22 03:48 Total Counted 100 03/13/22 03:48 Seg Neutrophils % 65.2 % (40.0-70.0) 03/14/22 05:24 Seg Neuts % (Manual) 84.0 % (40.0-70.0) H 03/13/22 03:48 Band Neutrophils % 0 % 03/13/22 03:48 Lymphocytes % (Manual) 9.0 % (13.4-35.0) L 03/13/22 03:48 Reactive Lymphs % (Man) 0 % 03/13/22 03:48 Monocytes % (Manual) 6.0 % (0.0-7.3) 03/13/22 03:48 Eosinophils % (Manual) 0 % (0.0-4.3) 03/13/22 03:48 Basophils % (Manual) 1.0 % (0.0-1.8) 03/13/22 03:48 Metamyelocytes % 0 % 03/13/22 03:48 Myelocytes % 0 % 03/13/22 03:48 Promyelocytes % 0 % 03/13/22 03:48 Blast Cells % 0 % 03/13/22 03:48 Nucleated RBC % Not Reportable 03/13/22 03:48 Seg Neutrophils # 7.3 K/mm3 (1.8-7.7) 03/14/22 05:24 Seg Neutrophils # Man 15.4 K/mm3 (1.8-7.7) H 03/13/22 03:48 Band Neutrophils # 0.0 K/mm3 03/13/22 03:48 Lymphocytes # (Manual) 1.6 K/mm3 (1.2-5.4) 03/13/22 03:48 Abs React Lymphs (Man) 0.0 K/mm3 03/13/22 03:48 Monocytes # (Manual) 1.1 K/mm3 (0.0-0.8) H 03/13/22 03:48 Eosinophils # (Manual) 0.0 K/mm3 (0.0-0.4) 03/13/22 03:48 Basophils # (Manual) 0.2 K/mm3 (0.0-0.1) H 03/13/22 03:48 Metamyelocytes # 0.0 K/mm3 03/13/22 03:48 Myelocytes # 0.0 K/mm3 03/13/22 03:48 Promyelocytes # 0.0 K/mm3 03/13/22 03:48 Blast Cells # 0.0 K/mm3 03/13/22 03:48 WBC Morphology Not Reportable 03/13/22 03:48 Hypersegmented Neuts Not Reportable 03/13/22 03:48 Hyposegmented Neuts Not Reportable 03/13/22 03:48 Hypogranular Neuts Not Reportable 03/13/22 03:48 Smudge Cells Not Reportable 03/13/22 03:48 Toxic Granulation Not Reportable 03/13/22 03:48 Toxic Vacuolation Not Reportable 03/13/22 03:48 Dohle Bodies Not Reportable 03/13/22 03:48 Pelger-Huet Anomaly Not Reportable 03/13/22 03:48 Niraj Rods Not Reportable 03/13/22 03:48 Platelet Estimate Consistent w auto 03/13/22 03:48 Clumped Platelets Not Reportable 03/13/22 03:48 Plt Clumps, EDTA Not Reportable 03/13/22 03:48 Large Platelets Not Reportable 03/13/22 03:48 Giant Platelets Not Reportable 03/13/22 03:48 Platelet Satelliting Not Reportable 03/13/22 03:48 Plt Morphology Comment Not Reportable 03/13/22 03:48 RBC Morphology Not Reportable 03/13/22 03:48 Dimorphic RBCs Not Reportable 03/13/22 03:48 Polychromasia Not Reportable 03/13/22 03:48 Hypochromasia Not Reportable 03/13/22 03:48 Poikilocytosis Not Reportable 03/13/22 03:48 Anisocytosis 1+ 03/13/22 03:48 Microcytosis Not Reportable 03/13/22 03:48 Macrocytosis Not Reportable 03/13/22 03:48 Spherocytes Not Reportable 03/13/22 03:48 Pappenheimer Bodies Not Reportable 03/13/22 03:48 Sickle Cells Not Reportable 03/13/22 03:48 Target Cells Not Reportable 03/13/22 03:48 Tear Drop Cells Not Reportable 03/13/22 03:48 Ovalocytes Not Reportable 03/13/22 03:48 Helmet Cells Not Reportable 03/13/22 03:48 [place] Bodies Not Reportable 03/13/22 03:48 [place] Rings Not Reportable 03/13/22 03:48 [place] Cells Not Reportable 03/13/22 03:48 Bite Cells Not Reportable 03/13/22 03:48 Crenated Cell Not Reportable 03/13/22 03:48 Elliptocytes Not Reportable 03/13/22 03:48 Acanthocytes (Spur) Not Reportable 03/13/22 03:48 Rouleaux Not Reportable 03/13/22 03:48 Hemoglobin C Crystals Not Reportable 03/13/22 03:48 Schistocytes Not Reportable 03/13/22 03:48 Malaria parasites Not Reportable 03/13/22 03:48 Chacorta Bodies Not Reportable 03/13/22 03:48 Hem Pathologist Commnt No 03/13/22 03:48 Sodium 140 mmol/L (137-145) 03/14/22 05:24 Potassium 3.7 mmol/L (3.6-5.0) 03/14/22 05:24 Chloride 103.7 mmol/L (98-107) 03/14/22 05:24 Carbon Dioxide 23 mmol/L (22-30) 03/14/22 05:24 Anion Gap 17 mmol/L 03/14/22 05:24 BUN 17 mg/dL (7-17) 03/14/22 05:24 Creatinine 1.1 mg/dL (0.6-1.2) 03/14/22 05:24 Estimated GFR > 60 ml/min 03/14/22 05:24 BUN/Creatinine Ratio 15 % 03/14/22 05:24 Glucose 97 mg/dL (65-100) 03/14/22 05:24 Lactic Acid 0.80 mmol/L (0.7-2.0) 03/13/22 13:14 Calcium 8.9 mg/dL (8.4-10.2) 03/14/22 05:24 Total Bilirubin 0.30 mg/dL (0.1-1.2) 03/14/22 05:24 AST 9 units/L (5-40) 03/14/22 05:24 ALT 14 units/L (7-56) 03/14/22 05:24 Alkaline Phosphatase 109 units/L (35-129) 03/14/22 05:24 Total Protein 6.8 g/dL (6.3-8.2) 03/14/22 05:24 Albumin 3.3 g/dL (3.9-5) L 03/14/22 05:24 Albumin/Globulin Ratio 0.9 % 03/14/22 05:24 Lipase 51 units/L (13-60) 03/13/22 13:14 Urine Color Yellow (Yellow) 03/13/22 Unknown Urine Turbidity Slightly-cloudy (Clear) 03/13/22 Unknown Urine pH 5.0 (5.0-7.0) 03/13/22 Unknown Ur Specific [place] 1.015 (1.003-1.030) 03/13/22 Unknown Urine Protein <15 mg/dl mg/dL (Negative) 03/13/22 Unknown Urine Glucose (UA) Neg mg/dL (Negative) 03/13/22 Unknown Urine Ketones Neg mg/dL (Negative) 03/13/22 Unknown Urine Blood Neg (Negative) 03/13/22 Unknown Urine Nitrite Neg (Negative) 03/13/22 Unknown Urine Bilirubin Neg (Negative) 03/13/22 Unknown Urine Urobilinogen < 2.0 mg/dL (<2.0) 03/13/22 Unknown Ur Leukocyte Esterase Neg (Negative) 03/13/22 Unknown Urine WBC (Auto) 6.0 /HPF (0.0-6.0) 03/13/22 Unknown Urine RBC (Auto) 3.0 /HPF (0.0-6.0) 03/13/22 Unknown U Epithel Cells (Auto) 3.0 /HPF (0-13.0) 03/13/22 Unknown Hyaline Casts 26 /LPF 03/13/22 Unknown Urine Mucus Few /HPF 03/13/22 Unknown Microbiology: Microbiology 03/13/22 13:14 Peripheral/Venous Blood Culture - Preliminary NO GROWTH AFTER 24 HOURS 03/13/22 13:14 Peripheral/Venous Blood Culture - Preliminary NO GROWTH AFTER 24 HOURS Wong/IV: Voiding Method Toilet Active Medications - Current Medications Current Medications: Generic Name Dose Route Start Last Admin Trade Name Freq PRN Reason Stop Dose Admin Acetaminophen 650 mg 03/13/22 20:35 Acetaminophen 650 Mg Rect Supp PA Q4H PRN Pain MILD(1-3)/Fever >100.5/PARRA Heparin Sodium (Porcine) 5,000 unit 03/13/22 22:00 03/14/22 12:07 Heparin 5,000 Unit/1 Ml Vial SUB-Q 5,000 unit Q12HR ELIZABET Administration Hydromorphone HCl 0.5 mg 03/13/22 20:35 03/14/22 16:21 Hydromorphone 0.5 Mg/0.5 Ml Inj IV 0.5 mg Q3H PRN Administration Pain , Severe (7-10) Sodium Chloride 1,000 mls @ 75 mls/hr 03/13/22 20:45 03/14/22 14:48 Nacl 0.9% 1000 Ml IV 75 mls/hr DIRECT ELIZABET Administration Metronidazole 500 mg in 100 mls @ 100 mls/hr 03/13/22 22:00 03/14/22 17:15 Flagyl 500 Mg/100 Ml IV 03/20/22 14:59 100 mls/hr Q8HR ELIZABET Administration Protocol Ceftriaxone Sodium 2 gm in 100 mls @ 200 mls/hr 03/14/22 14:00 03/14/22 14:48 Rocephin/Ns 2 Gm/100 Ml IV 03/19/22 14:29 200 mls/hr Q24H ELIZABET Administration Protocol Metoclopramide HCl 10 mg 03/13/22 20:35 Metoclopramide 10 Mg/2 Ml Inj IV Q6H PRN Nausea And Vomiting Morphine Sulfate 2 mg 03/13/22 20:35 Morphine 2 Mg/1 Ml Inj IV Q4H PRN Pain, Moderate (4-6) Ondansetron HCl 4 mg 03/13/22 20:35 Ondansetron 4 Mg/2 Ml Inj IV Q3H PRN Nausea And Vomiting Sodium Chloride 10 ml 03/13/22 22:00 03/14/22 12:07 Sodium Chloride 0.9% 10 Ml Flush Syringe IV 03/23/22 23:59 10 ml BID ELIZABET Administration Sodium Chloride 10 ml 03/13/22 20:35 Sodium Chloride 0.9% 10 Ml Flush Syringe IV PRN PRN LINE FLUSH
[2022-03-14] MEDS: MORPHINE 2 MG/1 ML INJ IV PRN (23:14)
[2022-03-15] MEDS: metroNIDAZOLE/NS 500 MG/100 ML 500 MG/100 ML BAG IV SCH ×3 (05:42→21:12)
[2022-03-15] MEDS: SODIUM CHLORIDE 0.9% 1000 ML 1,000 ML IV SCH (05:42)
[2022-03-15] MEDS: MORPHINE 2 MG/1 ML INJ IV PRN ×2 (05:53→20:25)
[2022-03-15 06:11] LABS: Basophils # (Auto) 0.1 K/mm3 (0.0-0.1); Basophils % (Auto) 0.6 % (0.0-1.8); Eosinophils # (Auto) 0.2 K/mm3 (0.0-0.4); Eosinophils % (Auto) 1.7 % (0.0-4.3); Hematocrit 26.5 % (30.3-42.9); Hemoglobin 8.3 gm/dl (10.1-14.3); Mean Corpuscular HGB Conc 32 % (30-34); Mean Corpuscular Volume 81 fl (79-97); Monocytes # (Auto) 1.1 K/mm3 (0.0-0.8); Monocytes % (Auto) 8.5 % (0.0-7.3); Platelet Count 327 K/mm3 (140-440); Red Blood Count 3.29 M/mm3 (3.65-5.03); Red Cell Distribution Width 16.8 % (13.2-15.2)
[2022-03-15] MEDS: HEPARIN 5,000 UNIT/1 ML VIAL SUB-Q SCH ×2 (09:07→21:09)
[2022-03-15] MEDS: HYDROmorphone 0.5 MG/0.5 ML INJ IV PRN (12:31)
--- NOTE | 2022-03-15 14:08 | Progress Note ---
Assessment and Plan 61-year-old -[place] lady with sigmoid diverticulitis. Agree with plans for limited p.o. intake, clear liquids should be appropriate at this time. IV antibiotics and IV fluids. There are some clinical signs of concern with increasing pain and increasing white counts. We will repeat CAT scan with p.o. contrast tomorrow. We will continue to follow patient with you. Subjective Date of service: 03/15/22 Patient Reports: Positive: still having pain Narrative: Patient noting increasing amounts of pain today and notes that the WBC count is 12,400. She is on a clear liquid diet at this time. Objective Vital Signs - 12hr 03/15/22 05:48 Temperature 97.9 F Pulse Rate 89 Respiratory 18 Rate Blood Pressure 117/67 O2 Sat by Pulse 95 Oximetry - Labs 03/15/22 05:25 03/14/22 05:24
--- NOTE | 2022-03-15 17:43 | Progress Note ---
Assessment and Plan Assessment and plan: Advance Directives: Yes (Full code) VTE prophylaxis?: Chemical Plan of care discussed with patient/family: Yes -- Sepsis due to acute diverticulitis Tachycardia, leukocytosis, brief hypotension on admission Acute diverticulitis on CT scan Continue Rocephin and Flagyl Surgery following --Acute diverticulitis of sigmoid colon Patient on n.p.o. status, trial clear liquids Zosyn changed to Rocephin and IV Flagyl Will advance her diet as tolerated Abdomen/pelvis CT Moderate acute sigmoid diverticulitis without definite complication Small left ovarian cyst unusual of the patient's age. Recommend follow-up nephrology with benign Right minimal nephrolithiasis without acute change Mild bilateral prominence postcholecystectomy patient of unknown chronicity recommend clinical correlation. --Hypertension Catapres patch if necessary --Moderate malnutrition; Nutrition supplements when patient is able to eat Supportive care, Nutrition consult if needed --Moderate hypoalbuminemia; albumin 3.3 Nutrition supplements, supportive care --DVT prophylaxis On heparin and GI prophylaxis -- Advance care planning Disease education conducted, care plan discussed, diagnosis discussed, prognosis discussed and patient acknowledges understanding with care plan. +30 minutes. Closely monitor the patient and adjust management as needed Follow surgery evaluation and recommendation Patient started on clear liquids, advance diet as tolerated Plan of care reviewed with the patient, her nurse, I discussed the case with surgeon Dr. Melton Brief history and daily Hospital course: 61-year-old female patient was admitted on through emergency room with left lower quadrant abdominal pain of 2 days duration,associated with nausea and vomiting no diarrhea. Initial work-up with CT abdomen and pelvis findings consistent with acute diverticulitis, patient was placed on n.p.o. status started on empiric antibiotics evaluated by surgeon. 03/14; patient strictly n.p.o. status, IV antibiotics Zosyn changed to Rocephin, continue Flagyl, IV fluids antiemetics, surgeon following 03/15; patient's symptoms slightly better, trial clear liquids started, advance as tolerated History Interval history: I have seen and examined the patient at the bedside Patient's chart and medications reviewed No new overnight events reported by nursing Patient feels slightly better still has some abdominal pain Anxious to go home Vital signs noted Hospitalist Physical - Constitutional Vitals: Temp Pulse Resp BP Pulse Ox 97.9 F 89 18 117/67 95 03/15/22 05:48 03/15/22 05:48 03/15/22 05:48 03/15/22 05:48 03/15/22 05:48 General appearance: Present: no acute distress, well-nourished - EENT Eyes: Present: PERRL, EOM intact - Neck Neck: Present: supple, normal ROM - Respiratory Respiratory effort: normal Respiratory: bilateral: diminished, negative: rales, rhonchi, wheezing - Cardiovascular Rhythm: regular Heart Sounds: Present: S1 & S2 - Extremities Extremities: no ischemia, No edema - Abdominal General gastrointestinal: soft, non-tender, non-distended, normal bowel sounds - Integumentary Integumentary: Present: clear, warm - Psychiatric Psychiatric: appropriate mood/affect, cooperative - Neurologic Neurologic: moves all extremities Results - Labs CBC & Chem 7: 03/15/22 05:25 03/14/22 05:24 Labs: Laboratory Last Values WBC 12.4 K/mm3 (4.5-11.0) H 03/15/22 05:25 RBC 3.29 M/mm3 (3.65-5.03) L 03/15/22 05:25 Hgb 8.3 gm/dl (10.1-14.3) L 03/15/22 05:25 Hct 26.5 % (30.3-42.9) L 03/15/22 05:25 MCV 81 fl (79-97) 03/15/22 05:25 MCH 25 pg (28-32) L 03/15/22 05:25 MCHC 32 % (30-34) 03/15/22 05:25 RDW 16.8 % (13.2-15.2) H 03/15/22 05:25 Plt Count 327 K/mm3 (140-440) 03/15/22 05:25 Lymph % (Auto) 24.0 % (13.4-35.0) 03/15/22 05:25 [place] % (Auto) 8.5 % (0.0-7.3) H 03/15/22 05:25 Eos % (Auto) 1.7 % (0.0-4.3) 03/15/22 05:25 Baso % (Auto) 0.6 % (0.0-1.8) 03/15/22 05:25 Lymph # (Auto) 3.0 K/mm3 (1.2-5.4) 03/15/22 05:25 [place] # (Auto) 1.1 K/mm3 (0.0-0.8) H 03/15/22 05:25 Eos # (Auto) 0.2 K/mm3 (0.0-0.4) 03/15/22 05:25 Baso # (Auto) 0.1 K/mm3 (0.0-0.1) 03/15/22 05:25 Add Manual Diff Complete 03/13/22 03:48 Total Counted 100 03/13/22 03:48 Seg Neutrophils % 65.2 % (40.0-70.0) 03/15/22 05:25 Seg Neuts % (Manual) 84.0 % (40.0-70.0) H 03/13/22 03:48 Band Neutrophils % 0 % 03/13/22 03:48 Lymphocytes % (Manual) 9.0 % (13.4-35.0) L 03/13/22 03:48 Reactive Lymphs % (Man) 0 % 03/13/22 03:48 Monocytes % (Manual) 6.0 % (0.0-7.3) 03/13/22 03:48 Eosinophils % (Manual) 0 % (0.0-4.3) 03/13/22 03:48 Basophils % (Manual) 1.0 % (0.0-1.8) 03/13/22 03:48 Metamyelocytes % 0 % 03/13/22 03:48 Myelocytes % 0 % 03/13/22 03:48 Promyelocytes % 0 % 03/13/22 03:48 Blast Cells % 0 % 03/13/22 03:48 Nucleated RBC % Not Reportable 03/13/22 03:48 Seg Neutrophils # 8.1 K/mm3 (1.8-7.7) H 03/15/22 05:25 Seg Neutrophils # Man 15.4 K/mm3 (1.8-7.7) H 03/13/22 03:48 Band Neutrophils # 0.0 K/mm3 03/13/22 03:48 Lymphocytes # (Manual) 1.6 K/mm3 (1.2-5.4) 03/13/22 03:48 Abs React Lymphs (Man) 0.0 K/mm3 03/13/22 03:48 Monocytes # (Manual) 1.1 K/mm3 (0.0-0.8) H 03/13/22 03:48 Eosinophils # (Manual) 0.0 K/mm3 (0.0-0.4) 03/13/22 03:48 Basophils # (Manual) 0.2 K/mm3 (0.0-0.1) H 03/13/22 03:48 Metamyelocytes # 0.0 K/mm3 03/13/22 03:48 Myelocytes # 0.0 K/mm3 03/13/22 03:48 Promyelocytes # 0.0 K/mm3 03/13/22 03:48 Blast Cells # 0.0 K/mm3 03/13/22 03:48 WBC Morphology Not Reportable 03/13/22 03:48 Hypersegmented Neuts Not Reportable 03/13/22 03:48 Hyposegmented Neuts Not Reportable 03/13/22 03:48 Hypogranular Neuts Not Reportable 03/13/22 03:48 Smudge Cells Not Reportable 03/13/22 03:48 Toxic Granulation Not Reportable 03/13/22 03:48 Toxic Vacuolation Not Reportable 03/13/22 03:48 Dohle Bodies Not Reportable 03/13/22 03:48 Pelger-Huet Anomaly Not Reportable 03/13/22 03:48 Niraj Rods Not Reportable 03/13/22 03:48 Platelet Estimate Consistent w auto 03/13/22 03:48 Clumped Platelets Not Reportable 03/13/22 03:48 Plt Clumps, EDTA Not Reportable 03/13/22 03:48 Large Platelets Not Reportable 03/13/22 03:48 Giant Platelets Not Reportable 03/13/22 03:48 Platelet Satelliting Not Reportable 03/13/22 03:48 Plt Morphology Comment Not Reportable 03/13/22 03:48 RBC Morphology Not Reportable 03/13/22 03:48 Dimorphic RBCs Not Reportable 03/13/22 03:48 Polychromasia Not Reportable 03/13/22 03:48 Hypochromasia Not Reportable 03/13/22 03:48 Poikilocytosis Not Reportable 03/13/22 03:48 Anisocytosis 1+ 03/13/22 03:48 Microcytosis Not Reportable 03/13/22 03:48 Macrocytosis Not Reportable 03/13/22 03:48 Spherocytes Not Reportable 03/13/22 03:48 Pappenheimer Bodies Not Reportable 03/13/22 03:48 Sickle Cells Not Reportable 03/13/22 03:48 Target Cells Not Reportable 03/13/22 03:48 Tear Drop Cells Not Reportable 03/13/22 03:48 Ovalocytes Not Reportable 03/13/22 03:48 Helmet Cells Not Reportable 03/13/22 03:48 Hamm-[place] Bodies Not Reportable 03/13/22 03:48 [place] Rings Not Reportable 03/13/22 03:48 [place] Cells Not Reportable 03/13/22 03:48 Bite Cells Not Reportable 03/13/22 03:48 Crenated Cell Not Reportable 03/13/22 03:48 Elliptocytes Not Reportable 03/13/22 03:48 Acanthocytes (Spur) Not Reportable 03/13/22 03:48 Rouleaux Not Reportable 03/13/22 03:48 Hemoglobin C Crystals Not Reportable 03/13/22 03:48 Schistocytes Not Reportable 03/13/22 03:48 Malaria parasites Not Reportable 03/13/22 03:48 Chacorta Bodies Not Reportable 03/13/22 03:48 Hem Pathologist Commnt No 03/13/22 03:48 Sodium 140 mmol/L (137-145) 03/14/22 05:24 Potassium 3.7 mmol/L (3.6-5.0) 03/14/22 05:24 Chloride 103.7 mmol/L (98-107) 03/14/22 05:24 Carbon Dioxide 23 mmol/L (22-30) 03/14/22 05:24 Anion Gap 17 mmol/L 03/14/22 05:24 BUN 17 mg/dL (7-17) 03/14/22 05:24 Creatinine 1.1 mg/dL (0.6-1.2) 03/14/22 05:24 Estimated GFR > 60 ml/min 03/14/22 05:24 BUN/Creatinine Ratio 15 % 03/14/22 05:24 Glucose 97 mg/dL (65-100) 03/14/22 05:24 Lactic Acid 0.80 mmol/L (0.7-2.0) 03/13/22 13:14 Calcium 8.9 mg/dL (8.4-10.2) 03/14/22 05:24 Total Bilirubin 0.30 mg/dL (0.1-1.2) 03/14/22 05:24 AST 9 units/L (5-40) 03/14/22 05:24 ALT 14 units/L (7-56) 03/14/22 05:24 Alkaline Phosphatase 109 units/L (35-129) 03/14/22 05:24 Total Protein 6.8 g/dL (6.3-8.2) 03/14/22 05:24 Albumin 3.3 g/dL (3.9-5) L 03/14/22 05:24 Albumin/Globulin Ratio 0.9 % 03/14/22 05:24 Lipase 51 units/L (13-60) 03/13/22 13:14 Urine Color Yellow (Yellow) 03/13/22 Unknown Urine Turbidity Slightly-cloudy (Clear) 03/13/22 Unknown Urine pH 5.0 (5.0-7.0) 03/13/22 Unknown Ur Specific [place] 1.015 (1.003-1.030) 03/13/22 Unknown Urine Protein <15 mg/dl mg/dL (Negative) 03/13/22 Unknown Urine Glucose (UA) Neg mg/dL (Negative) 03/13/22 Unknown Urine Ketones Neg mg/dL (Negative) 03/13/22 Unknown Urine Blood Neg (Negative) 03/13/22 Unknown Urine Nitrite Neg (Negative) 03/13/22 Unknown Urine Bilirubin Neg (Negative) 03/13/22 Unknown Urine Urobilinogen < 2.0 mg/dL (<2.0) 03/13/22 Unknown Ur Leukocyte Esterase Neg (Negative) 03/13/22 Unknown Urine WBC (Auto) 6.0 /HPF (0.0-6.0) 03/13/22 Unknown Urine RBC (Auto) 3.0 /HPF (0.0-6.0) 03/13/22 Unknown U Epithel Cells (Auto) 3.0 /HPF (0-13.0) 03/13/22 Unknown Hyaline Casts 26 /LPF 03/13/22 Unknown Urine Mucus Few /HPF 03/13/22 Unknown Microbiology: Microbiology 03/13/22 13:14 Peripheral/Venous Blood Culture - Preliminary NO GROWTH AFTER 24 HOURS 03/13/22 13:14 Peripheral/Venous Blood Culture - Preliminary NO GROWTH AFTER 24 HOURS Wong/IV: Voiding Method Toilet Active Medications - Current Medications Current Medications: Generic Name Dose Route Start Last Admin Trade Name Freq PRN Reason Stop Dose Admin Acetaminophen 650 mg 03/13/22 20:35 Acetaminophen 650 Mg Rect Supp IN Q4H PRN Pain MILD(1-3)/Fever >100.5/PARRA Heparin Sodium (Porcine) 5,000 unit 03/13/22 22:00 03/15/22 09:07 Heparin 5,000 Unit/1 Ml Vial SUB-Q 5,000 unit Q12HR ELIZABET Administration Hydromorphone HCl 0.5 mg 03/13/22 20:35 03/15/22 12:31 Hydromorphone 0.5 Mg/0.5 Ml Inj IV 0.5 mg Q3H PRN Administration Pain , Severe (7-10) Sodium Chloride 1,000 mls @ 75 mls/hr 03/13/22 20:45 03/15/22 05:42 Nacl 0.9% 1000 Ml IV 75 mls/hr DIRECT ELIZABET Administration Metronidazole 500 mg in 100 mls @ 100 mls/hr 03/13/22 22:00 03/15/22 15:04 Flagyl 500 Mg/100 Ml IV 03/20/22 14:59 100 mls/hr Q8HR ELIZABET Administration Protocol Ceftriaxone Sodium 2 gm in 100 mls @ 200 mls/hr 03/14/22 14:00 03/14/22 14:48 Rocephin/Ns 2 Gm/100 Ml IV 03/19/22 14:29 200 mls/hr Q24H ELIZABET Administration Protocol Metoclopramide HCl 10 mg 03/13/22 20:35 Metoclopramide 10 Mg/2 Ml Inj IV Q6H PRN Nausea And Vomiting Morphine Sulfate 2 mg 03/13/22 20:35 03/15/22 05:53 Morphine 2 Mg/1 Ml Inj IV 2 mg Q4H PRN Administration Pain, Moderate (4-6) Ondansetron HCl 4 mg 03/13/22 20:35 Ondansetron 4 Mg/2 Ml Inj IV Q3H PRN Nausea And Vomiting Sodium Chloride 10 ml 03/13/22 22:00 07/19/22 15:04 Sodium Chloride 0.9% 10 Ml Flush Syringe IV 03/23/22 23:59 10 ml BID ELIZABET Administration Sodium Chloride 10 ml 03/13/22 20:35 Sodium Chloride 0.9% 10 Ml Flush Syringe IV PRN PRN LINE FLUSH
[2022-03-15] MEDS: cefTRIAXone/NS 2 GM/100 ML 2 GM/100 ML BAG IV SCH (20:22)
[2022-03-16] MEDS: SODIUM CHLORIDE 0.9% 1000 ML 1,000 ML IV SCH (04:55)
[2022-03-16] MEDS: HYDROmorphone 0.5 MG/0.5 ML INJ IV PRN ×3 (04:56→20:54)
[2022-03-16] MEDS: metroNIDAZOLE/NS 500 MG/100 ML 500 MG/100 ML BAG IV SCH ×3 (05:02→21:00)
--- NOTE | 2022-03-16 08:57 | Progress Note ---
Assessment and Plan 61-year-old -[place] lady with sigmoid diverticulitis. Agree with plans for limited p.o. intake, clear liquids should be appropriate at this time. IV antibiotics and IV fluids. There are some clinical signs of concern with increasing pain and increasing white counts. Pt with less pain today. She is not pain free. She continues on clear liquids. CT of abdo and pelvis done images reviewed. Some fluid colleciton in the pelvis noted. Radiologic report pending. cont iv ab and ivf for now. We will continue to follow patient with you. Subjective Date of service: 03/16/22 Patient Reports: Positive: feels better Narrative: Pt with less pain today. She is not pain free. She continues on clear liquids. CT of abdo and pelvis done images reviewed. Some fluid colleciton in the pelvis noted. Radiologic report pending. cont iv ab and ivf for now. Objective Vital Signs - 12hr 03/15/22 03/15/22 03/16/22 23:10 23:38 04:58 Temperature 98.9 F 97.9 F Pulse Rate 92 H 83 Respiratory 18 18 Rate Blood Pressure 119/64 126/66 [Left] O2 Sat by Pulse 97 94 93 Oximetry 03/16/22 07:53 Temperature Pulse Rate Respiratory 20 Rate Blood Pressure [Left] O2 Sat by Pulse 97 Oximetry - Labs 03/15/22 05:25 03/14/22 05:24
--- NOTE | 2022-03-16 09:48 | Cat Scan Report ---
CT ABDOMEN AND PELVIS WITH IV CONTRAST INDICATION: Diverticulitis with increasing pain within the left lower quadrant. COMPARISON: 03/13/2022 TECHNIQUE: Axial CT images were obtained through the abdomen and pelvis after 100 mL Omnipaque [address] scans at this location are performed using CT dose reduction for ALARA by means of automated e xposure control. FINDINGS -- ABDOMEN: Lung Bases: No acute abnormality. Liver: Normal. Gallbladder: Removed. Bile Ducts: Normal. Pancreas: Normal. Spleen: Normal. Adrenals: Normal. Right Kidney and Proximal Ureter: Nephrolithiasis. Left Kidney and Proximal Ureter: Nephrolithiasis. Stomach and Bowel: Normal. Lymph Nodes: No significant adenopathy. Aorta: No significant abnormality. IVC: Normal. Additional Findings: None. FINDINGS -- PELVIS: Urinary Bladder and Distal Ureters: The urinary bladder is mostly collapsed and difficult to evaluate several cysts are present within both ovaries. Reproductive Organs: No acute abnormality. Appendix: Not identified. Bowel: There is prominent diverticulitis involving the mid sigmoid colon w ith surrounding mesenteric edema. Free Fluid: None. Lymph Nodes: No significant adenopathy. Additional Findings: None. Skeletal System: No acute abnormality. IMPRESSION: Persistent acute diverticulitis of the mid sigmoid colon without definite evidence of abscess or free perforation. Signer Name: Bijan Oropeza MD Signed: 03/16/2022 9:44 AM Workstation Name: [email or web address]
[2022-03-16] MEDS: HEPARIN 5,000 UNIT/1 ML VIAL SUB-Q SCH ×2 (10:49→21:00)
[2022-03-16] MEDS: MORPHINE 2 MG/1 ML INJ IV PRN (14:28)
[2022-03-16] MEDS: cefTRIAXone/NS 2 GM/100 ML 2 GM/100 ML BAG IV SCH (14:40)
--- NOTE | 2022-03-16 16:00 | Progress Note ---
Assessment and Plan Assessment and plan: Advance Directives: Yes (Full code) VTE prophylaxis?: Chemical Plan of care discussed with patient/family: Yes -- Sepsis due to acute diverticulitis Tachycardia, leukocytosis, brief hypotension on admission Acute diverticulitis on CT scan Continue Rocephin and Flagyl Surgery following --Acute diverticulitis of sigmoid colon Patient on n.p.o. status, trial clear liquids Zosyn changed to Rocephin and IV Flagyl Will advance her diet as tolerated Abdomen/pelvis CT Moderate acute sigmoid diverticulitis without definite complication Small left ovarian cyst unusual of the patient's age. Recommend follow-up nephrology with benign Right minimal nephrolithiasis without acute change Mild bilateral prominence postcholecystectomy patient of unknown chronicity recommend clinical correlation. --Hypertension Catapres patch if necessary --Moderate malnutrition; Nutrition supplements when patient is able to eat Supportive care, Nutrition consult if needed --Moderate hypoalbuminemia; albumin 3.3 Nutrition supplements, supportive care --DVT prophylaxis On heparin and GI prophylaxis -- Advance care planning Disease education conducted, care plan discussed, diagnosis discussed, prognosis discussed and patient acknowledges understanding with care plan. +30 minutes. Closely monitor the patient and adjust management as needed Follow surgery evaluation and recommendation Patient started on clear liquids, advance diet as tolerated Plan of care reviewed with the patient, her nurse, I discussed the case with surgeon Dr. Melton Brief history and daily Hospital course: 61-year-old female patient was admitted on through emergency room with left lower quadrant abdominal pain of 2 days duration,associated with nausea and vomiting no diarrhea. Initial work-up with CT abdomen and pelvis findings consistent with acute diverticulitis, patient was placed on n.p.o. status started on empiric antibiotics evaluated by surgeon. 03/14; patient strictly n.p.o. status, IV antibiotics Zosyn changed to Rocephin, continue Flagyl, IV fluids antiemetics, surgeon following 03/15; patient's symptoms slightly better, trial clear liquids started, advance as tolerated History Interval history: I have seen and examined the patient at the bedside Patient's chart and medications reviewed No new events reported by the nursing Vital signs noted Hospitalist Physical - Constitutional Vitals: Temp Pulse Resp BP Pulse Ox 98.3 F 81 20 118/68 91 03/16/22 12:14 03/16/22 12:14 03/16/22 14:28 03/16/22 12:14 03/16/22 12:14 General appearance: Present: no acute distress, well-nourished - EENT Eyes: Present: PERRL, EOM intact - Neck Neck: Present: supple, normal ROM - Respiratory Respiratory effort: normal Respiratory: bilateral: diminished, negative: rales, rhonchi, wheezing - Cardiovascular Rhythm: regular Heart Sounds: Present: S1 & S2 - Extremities Extremities: no ischemia, No edema - Abdominal General gastrointestinal: soft, non-tender, non-distended - Integumentary Integumentary: Present: clear, warm - Psychiatric Psychiatric: appropriate mood/affect, agitated - Neurologic Neurologic: CNII-XII intact, moves all extremities Results - Labs CBC & Chem 7: 03/15/22 05:25 03/14/22 05:24 Labs: Laboratory Last Values WBC 12.4 K/mm3 (4.5-11.0) H 03/15/22 05:25 RBC 3.29 M/mm3 (3.65-5.03) L 03/15/22 05:25 Hgb 8.3 gm/dl (10.1-14.3) L 03/15/22 05:25 Hct 26.5 % (30.3-42.9) L 03/15/22 05:25 MCV 81 fl (79-97) 03/15/22 05:25 MCH 25 pg (28-32) L 03/15/22 05:25 MCHC 32 % (30-34) 03/15/22 05:25 RDW 16.8 % (13.2-15.2) H 03/15/22 05:25 Plt Count 327 K/mm3 (140-440) 03/15/22 05:25 Lymph % (Auto) 24.0 % (13.4-35.0) 03/15/22 05:25 [place] % (Auto) 8.5 % (0.0-7.3) H 03/15/22 05:25 Eos % (Auto) 1.7 % (0.0-4.3) 03/15/22 05:25 Baso % (Auto) 0.6 % (0.0-1.8) 03/15/22 05:25 Lymph # (Auto) 3.0 K/mm3 (1.2-5.4) 03/15/22 05:25 [place] # (Auto) 1.1 K/mm3 (0.0-0.8) H 03/15/22 05:25 Eos # (Auto) 0.2 K/mm3 (0.0-0.4) 03/15/22 05:25 Baso # (Auto) 0.1 K/mm3 (0.0-0.1) 03/15/22 05:25 Add Manual Diff Complete 03/13/22 03:48 Total Counted 100 03/13/22 03:48 Seg Neutrophils % 65.2 % (40.0-70.0) 03/15/22 05:25 Seg Neuts % (Manual) 84.0 % (40.0-70.0) H 03/13/22 03:48 Band Neutrophils % 0 % 03/13/22 03:48 Lymphocytes % (Manual) 9.0 % (13.4-35.0) L 03/13/22 03:48 Reactive Lymphs % (Man) 0 % 03/13/22 03:48 Monocytes % (Manual) 6.0 % (0.0-7.3) 03/13/22 03:48 Eosinophils % (Manual) 0 % (0.0-4.3) 03/13/22 03:48 Basophils % (Manual) 1.0 % (0.0-1.8) 03/13/22 03:48 Metamyelocytes % 0 % 03/13/22 03:48 Myelocytes % 0 % 03/13/22 03:48 Promyelocytes % 0 % 03/13/22 03:48 Blast Cells % 0 % 03/13/22 03:48 Nucleated RBC % Not Reportable 03/13/22 03:48 Seg Neutrophils # 8.1 K/mm3 (1.8-7.7) H 03/15/22 05:25 Seg Neutrophils # Man 15.4 K/mm3 (1.8-7.7) H 03/13/22 03:48 Band Neutrophils # 0.0 K/mm3 03/13/22 03:48 Lymphocytes # (Manual) 1.6 K/mm3 (1.2-5.4) 03/13/22 03:48 Abs React Lymphs (Man) 0.0 K/mm3 03/13/22 03:48 Monocytes # (Manual) 1.1 K/mm3 (0.0-0.8) H 03/13/22 03:48 Eosinophils # (Manual) 0.0 K/mm3 (0.0-0.4) 03/13/22 03:48 Basophils # (Manual) 0.2 K/mm3 (0.0-0.1) H 03/13/22 03:48 Metamyelocytes # 0.0 K/mm3 03/13/22 03:48 Myelocytes # 0.0 K/mm3 03/13/22 03:48 Promyelocytes # 0.0 K/mm3 03/13/22 03:48 Blast Cells # 0.0 K/mm3 03/13/22 03:48 WBC Morphology Not Reportable 03/13/22 03:48 Hypersegmented Neuts Not Reportable 03/13/22 03:48 Hyposegmented Neuts Not Reportable 03/13/22 03:48 Hypogranular Neuts Not Reportable 03/13/22 03:48 Smudge Cells Not Reportable 03/13/22 03:48 Toxic Granulation Not Reportable 03/13/22 03:48 Toxic Vacuolation Not Reportable 03/13/22 03:48 Dohle Bodies Not Reportable 03/13/22 03:48 Pelger-Huet Anomaly Not Reportable 03/13/22 03:48 Niraj Rods Not Reportable 03/13/22 03:48 Platelet Estimate Consistent w auto 03/13/22 03:48 Clumped Platelets Not Reportable 03/13/22 03:48 Plt Clumps, EDTA Not Reportable 03/13/22 03:48 Large Platelets Not Reportable 03/13/22 03:48 Giant Platelets Not Reportable 03/13/22 03:48 Platelet Satelliting Not Reportable 03/13/22 03:48 Plt Morphology Comment Not Reportable 03/13/22 03:48 RBC Morphology Not Reportable 03/13/22 03:48 Dimorphic RBCs Not Reportable 03/13/22 03:48 Polychromasia Not Reportable 03/13/22 03:48 Hypochromasia Not Reportable 03/13/22 03:48 Poikilocytosis Not Reportable 03/13/22 03:48 Anisocytosis 1+ 03/13/22 03:48 Microcytosis Not Reportable 03/13/22 03:48 Macrocytosis Not Reportable 03/13/22 03:48 Spherocytes Not Reportable 03/13/22 03:48 Pappenheimer Bodies Not Reportable 03/13/22 03:48 Sickle Cells Not Reportable 03/13/22 03:48 Target Cells Not Reportable 03/13/22 03:48 Tear Drop Cells Not Reportable 03/13/22 03:48 Ovalocytes Not Reportable 03/13/22 03:48 Helmet Cells Not Reportable 03/13/22 03:48 Hamm-Comobabi Bodies Not Reportable 03/13/22 03:48 [place] Rings Not Reportable 03/13/22 03:48 [place] Cells Not Reportable 03/13/22 03:48 Bite Cells Not Reportable 03/13/22 03:48 Crenated Cell Not Reportable 03/13/22 03:48 Elliptocytes Not Reportable 03/13/22 03:48 Acanthocytes (Spur) Not Reportable 03/13/22 03:48 Rouleaux Not Reportable 03/13/22 03:48 Hemoglobin C Crystals Not Reportable 03/13/22 03:48 Schistocytes Not Reportable 03/13/22 03:48 Malaria parasites Not Reportable 03/13/22 03:48 [place] Bodies Not Reportable 03/13/22 03:48 Hem Pathologist Commnt No 03/13/22 03:48 Sodium 140 mmol/L (137-145) 03/14/22 05:24 Potassium 3.7 mmol/L (3.6-5.0) 03/14/22 05:24 Chloride 103.7 mmol/L (98-107) 03/14/22 05:24 Carbon Dioxide 23 mmol/L (22-30) 03/14/22 05:24 Anion Gap 17 mmol/L 03/14/22 05:24 BUN 17 mg/dL (7-17) 03/14/22 05:24 Creatinine 1.1 mg/dL (0.6-1.2) 03/14/22 05:24 Estimated GFR > 60 ml/min 03/14/22 05:24 BUN/Creatinine Ratio 15 % 03/14/22 05:24 Glucose 97 mg/dL (65-100) 03/14/22 05:24 POC Glucose 87 mg/dL (70-105) 03/16/22 11:31 Lactic Acid 0.80 mmol/L (0.7-2.0) 03/13/22 13:14 Calcium 8.9 mg/dL (8.4-10.2) 03/14/22 05:24 Total Bilirubin 0.30 mg/dL (0.1-1.2) 03/14/22 05:24 AST 9 units/L (5-40) 03/14/22 05:24 ALT 14 units/L (7-56) 03/14/22 05:24 Alkaline Phosphatase 109 units/L (35-129) 03/14/22 05:24 Total Protein 6.8 g/dL (6.3-8.2) 03/14/22 05:24 Albumin 3.3 g/dL (3.9-5) L 03/14/22 05:24 Albumin/Globulin Ratio 0.9 % 03/14/22 05:24 Lipase 51 units/L (13-60) 03/13/22 13:14 Urine Color Yellow (Yellow) 03/13/22 Unknown Urine Turbidity Slightly-cloudy (Clear) 03/13/22 Unknown Urine pH 5.0 (5.0-7.0) 03/13/22 Unknown Ur Specific [place] 1.015 (1.003-1.030) 03/13/22 Unknown Urine Protein <15 mg/dl mg/dL (Negative) 03/13/22 Unknown Urine Glucose (UA) Neg mg/dL (Negative) 03/13/22 Unknown Urine Ketones Neg mg/dL (Negative) 03/13/22 Unknown Urine Blood Neg (Negative) 03/13/22 Unknown Urine Nitrite Neg (Negative) 03/13/22 Unknown Urine Bilirubin Neg (Negative) 03/13/22 Unknown Urine Urobilinogen < 2.0 mg/dL (<2.0) 03/13/22 Unknown Ur Leukocyte Esterase Neg (Negative) 03/13/22 Unknown Urine WBC (Auto) 6.0 /HPF (0.0-6.0) 03/13/22 Unknown Urine RBC (Auto) 3.0 /HPF (0.0-6.0) 03/13/22 Unknown U Epithel Cells (Auto) 3.0 /HPF (0-13.0) 03/13/22 Unknown Hyaline Casts 26 /LPF 03/13/22 Unknown Urine Mucus Few /HPF 03/13/22 Unknown Microbiology: Microbiology 03/13/22 13:14 Peripheral/Venous Blood Culture - Preliminary NO GROWTH AFTER 48 HOURS 03/13/22 13:14 Peripheral/Venous Blood Culture - Preliminary NO GROWTH AFTER 48 HOURS Wong/IV: Voiding Method Toilet Active Medications - Current Medications Current Medications: Generic Name Dose Route Start Last Admin Trade Name Freq PRN Reason Stop Dose Admin Acetaminophen 650 mg 03/13/22 20:35 Acetaminophen 650 Mg Rect Supp FL Q4H PRN Pain MILD(1-3)/Fever >100.5/PARRA Heparin Sodium (Porcine) 5,000 unit 03/13/22 22:00 03/16/22 10:49 Heparin 5,000 Unit/1 Ml Vial SUB-Q 5,000 unit Q12HR ELIZABET Administration Hydromorphone HCl 0.5 mg 03/13/22 20:35 03/16/22 04:56 Hydromorphone 0.5 Mg/0.5 Ml Inj IV 0.5 mg Q3H PRN Administration Pain , Severe (7-10) Sodium Chloride 1,000 mls @ 75 mls/hr 03/13/22 20:45 03/16/22 04:55 Nacl 0.9% 1000 Ml IV 75 mls/hr DIRECT ELIZABET Administration Metronidazole 500 mg in 100 mls @ 100 mls/hr 03/13/22 22:00 03/16/22 14:18 Flagyl 500 Mg/100 Ml IV 03/20/22 14:59 100 mls/hr Q8HR ELIZABET Administration Protocol Ceftriaxone Sodium 2 gm in 100 mls @ 200 mls/hr 03/14/22 14:00 03/16/22 14:40 Rocephin/Ns 2 Gm/100 Ml IV 03/19/22 14:29 200 mls/hr Q24H ELIZABET Administration Protocol Metoclopramide HCl 10 mg 03/13/22 20:35 Metoclopramide 10 Mg/2 Ml Inj IV Q6H PRN Nausea And Vomiting Morphine Sulfate 2 mg 03/13/22 20:35 03/16/22 14:28 Morphine 2 Mg/1 Ml Inj IV 2 mg Q4H PRN Administration Pain, Moderate (4-6) Ondansetron HCl 4 mg 03/13/22 20:35 Ondansetron 4 Mg/2 Ml Inj IV Q3H PRN Nausea And Vomiting Sodium Chloride 10 ml 03/13/22 22:00 03/16/22 10:50 Sodium Chloride 0.9% 10 Ml Flush Syringe IV 03/23/22 23:59 10 ml BID ELIZABET Administration Sodium Chloride 10 ml 03/13/22 20:35 Sodium Chloride 0.9% 10 Ml Flush Syringe IV PRN PRN LINE FLUSH
[2022-03-17] MEDS: MORPHINE 2 MG/1 ML INJ IV PRN ×3 (03:24→22:20)
[2022-03-17] MEDS: metroNIDAZOLE/NS 500 MG/100 ML 500 MG/100 ML BAG IV SCH ×3 (05:36→22:14)
[2022-03-17] MEDS: HEPARIN 5,000 UNIT/1 ML VIAL SUB-Q SCH ×2 (09:08→22:14)
[2022-03-17] MEDS: HYDROmorphone 0.5 MG/0.5 ML INJ IV PRN (09:08)
--- NOTE | 2022-03-17 09:11 | Progress Note ---
Assessment and Plan 61-year-old -[place] lady with sigmoid diverticulitis. Agree with plans for limited p.o. intake, clear liquids should be appropriate at this time. IV antibiotics and IV fluids. Patient on full liquid diet continuing to have pain. Last CBC check was 2 days ago CBC is sent this morning. Will likely need to continue IV antibiotics. Continue also full liquids at this time. We will continue to follow patient with you. Subjective Date of service: 03/17/22 Patient Reports: Positive: still having pain, flatus, bowel movement Narrative: Patient on full liquid diet continuing to have pain. Last CBC check was 2 days ago CBC is sent this morning. Will likely need to continue IV antibiotics. Continue also full liquids at this time. Objective Vital Signs - 12hr 03/16/22 03/17/22 21:12 07:54 Temperature 98.3 F 97.8 F Pulse Rate 84 78 Respiratory 16 16 Rate Blood Pressure 135/72 Blood Pressure 127/71 [Left] O2 Sat by Pulse 98 92 Oximetry - Labs 03/15/22 05:25 03/14/22 05:24
--- NOTE | 2022-03-17 10:27 | Progress Note ---
Assessment and Plan Assessment and plan: -- Sepsis due to acute diverticulitis Tachycardia, leukocytosis, brief hypotension on admission Acute diverticulitis on CT scan Continue Rocephin and Flagyl Surgery following --Acute diverticulitis of sigmoid colon Patient on n.p.o. status, trial clear liquids Zosyn changed to Rocephin and IV Flagyl Will advance her diet as tolerated Abdomen/pelvis CT Moderate acute sigmoid diverticulitis without definite complication Small left ovarian cyst unusual of the patient's age. Recommend follow-up nephrology with benign Right minimal nephrolithiasis without acute change Mild bilateral prominence postcholecystectomy patient of unknown chronicity recommend clinical correlation. --Hypertension Catapres patch if necessary --Moderate malnutrition; Nutrition supplements when patient is able to eat Supportive care, Nutrition consult if needed --Moderate hypoalbuminemia; albumin 3.3 Nutrition supplements, supportive care --DVT prophylaxis On heparin and GI prophylaxis -- Advance care planning Disease education conducted, care plan discussed, diagnosis discussed, prognosis discussed and patient acknowledges understanding with care plan. +30 minutes. Closely monitor the patient and adjust management as needed Follow surgery evaluation and recommendation Patient started on clear liquids, advance diet as tolerated Plan of care reviewed with the patient, her nurse, I discussed the case with surgeon Dr. Melton Brief history and daily Hospital course: 61-year-old female patient was admitted on through emergency room with left lower quadrant abdominal pain of 2 days duration,associated with nausea and vomiting no diarrhea. Initial work-up with CT abdomen and pelvis findings consistent with acute diverticulitis, patient was placed on n.p.o. status started on empiric antibiotics evaluated by surgeon. 03/14; patient strictly n.p.o. status, IV antibiotics Zosyn changed to Rocephin, continue Flagyl, IV fluids antiemetics, surgeon following 03/15; patient's symptoms slightly better, trial clear liquids started, advance as tolerated 03/16; patient is on clear liquids, continues to have abdominal pain, surgery following Advised to continue clear liquids as tolerated 03/17; patient feels slightly better, pain significantly improved however still continues to have some mild pain She is on clear liquids, WBC trended down to normal range, may advance diet tomorrow and possible discharge home Disposition; advance the diet and possible discharge tomorrow if stable History Interval history: I have seen and examined the patient at the bedside Patient's chart and medications reviewed Patient is on clear liquids per surgeon Complains of mild abdominal pain Denies nausea vomiting Vital signs reviewed Hospitalist Physical - Constitutional Vitals: Temp Pulse Resp BP Pulse Ox 97.8 F 78 16 135/72 92 03/17/22 07:54 03/17/22 07:54 03/17/22 07:54 03/17/22 07:54 03/17/22 07:54 General appearance: Present: no acute distress, well-nourished, obese - EENT Eyes: Present: PERRL, EOM intact - Neck Neck: Present: supple, normal ROM - Respiratory Respiratory effort: normal Respiratory: bilateral: diminished, negative: rales, rhonchi, wheezing - Cardiovascular Rhythm: regular Heart Sounds: Present: S1 & S2 - Extremities Extremities: no ischemia, No edema - Abdominal General gastrointestinal: soft, non-tender, tender (Mild vague tenderness, no guarding no rigidity), non-distended, normal bowel sounds - Integumentary Integumentary: Present: clear, warm - Psychiatric Psychiatric: appropriate mood/affect, cooperative - Neurologic Neurologic: CNII-XII intact, moves all extremities Results - Labs CBC & Chem 7: 03/17/22 13:58 03/14/22 05:24 Labs: Laboratory Last Values WBC 12.4 K/mm3 (4.5-11.0) H 03/15/22 05:25 RBC 3.29 M/mm3 (3.65-5.03) L 03/15/22 05:25 Hgb 8.3 gm/dl (10.1-14.3) L 03/15/22 05:25 Hct 26.5 % (30.3-42.9) L 03/15/22 05:25 MCV 81 fl (79-97) 03/15/22 05:25 MCH 25 pg (28-32) L 03/15/22 05:25 MCHC 32 % (30-34) 03/15/22 05:25 RDW 16.8 % (13.2-15.2) H 03/15/22 05:25 Plt Count 327 K/mm3 (140-440) 03/15/22 05:25 Lymph % (Auto) 24.0 % (13.4-35.0) 03/15/22 05:25 [place] % (Auto) 8.5 % (0.0-7.3) H 03/15/22 05:25 Eos % (Auto) 1.7 % (0.0-4.3) 03/15/22 05:25 Baso % (Auto) 0.6 % (0.0-1.8) 03/15/22 05:25 Lymph # (Auto) 3.0 K/mm3 (1.2-5.4) 03/15/22 05:25 [place] # (Auto) 1.1 K/mm3 (0.0-0.8) H 03/15/22 05:25 Eos # (Auto) 0.2 K/mm3 (0.0-0.4) 03/15/22 05:25 Baso # (Auto) 0.1 K/mm3 (0.0-0.1) 03/15/22 05:25 Add Manual Diff Complete 03/13/22 03:48 Total Counted 100 03/13/22 03:48 Seg Neutrophils % 65.2 % (40.0-70.0) 03/15/22 05:25 Seg Neuts % (Manual) 84.0 % (40.0-70.0) H 03/13/22 03:48 Band Neutrophils % 0 % 03/13/22 03:48 Lymphocytes % (Manual) 9.0 % (13.4-35.0) L 03/13/22 03:48 Reactive Lymphs % (Man) 0 % 03/13/22 03:48 Monocytes % (Manual) 6.0 % (0.0-7.3) 03/13/22 03:48 Eosinophils % (Manual) 0 % (0.0-4.3) 03/13/22 03:48 Basophils % (Manual) 1.0 % (0.0-1.8) 03/13/22 03:48 Metamyelocytes % 0 % 03/13/22 03:48 Myelocytes % 0 % 03/13/22 03:48 Promyelocytes % 0 % 03/13/22 03:48 Blast Cells % 0 % 03/13/22 03:48 Nucleated RBC % Not Reportable 03/13/22 03:48 Seg Neutrophils # 8.1 K/mm3 (1.8-7.7) H 03/15/22 05:25 Seg Neutrophils # Man 15.4 K/mm3 (1.8-7.7) H 03/13/22 03:48 Band Neutrophils # 0.0 K/mm3 03/13/22 03:48 Lymphocytes # (Manual) 1.6 K/mm3 (1.2-5.4) 03/13/22 03:48 Abs React Lymphs (Man) 0.0 K/mm3 03/13/22 03:48 Monocytes # (Manual) 1.1 K/mm3 (0.0-0.8) H 03/13/22 03:48 Eosinophils # (Manual) 0.0 K/mm3 (0.0-0.4) 03/13/22 03:48 Basophils # (Manual) 0.2 K/mm3 (0.0-0.1) H 03/13/22 03:48 Metamyelocytes # 0.0 K/mm3 03/13/22 03:48 Myelocytes # 0.0 K/mm3 03/13/22 03:48 Promyelocytes # 0.0 K/mm3 03/13/22 03:48 Blast Cells # 0.0 K/mm3 03/13/22 03:48 WBC Morphology Not Reportable 03/13/22 03:48 Hypersegmented Neuts Not Reportable 03/13/22 03:48 Hyposegmented Neuts Not Reportable 03/13/22 03:48 Hypogranular Neuts Not Reportable 03/13/22 03:48 Smudge Cells Not Reportable 03/13/22 03:48 Toxic Granulation Not Reportable 03/13/22 03:48 Toxic Vacuolation Not Reportable 03/13/22 03:48 Dohle Bodies Not Reportable 03/13/22 03:48 Pelger-Huet Anomaly Not Reportable 03/13/22 03:48 Niraj Rods Not Reportable 03/13/22 03:48 Platelet Estimate Consistent w auto 03/13/22 03:48 Clumped Platelets Not Reportable 03/13/22 03:48 Plt Clumps, EDTA Not Reportable 03/13/22 03:48 Large Platelets Not Reportable 03/13/22 03:48 Giant Platelets Not Reportable 03/13/22 03:48 Platelet Satelliting Not Reportable 03/13/22 03:48 Plt Morphology Comment Not Reportable 03/13/22 03:48 RBC Morphology Not Reportable 03/13/22 03:48 Dimorphic RBCs Not Reportable 03/13/22 03:48 Polychromasia Not Reportable 03/13/22 03:48 Hypochromasia Not Reportable 03/13/22 03:48 Poikilocytosis Not Reportable 03/13/22 03:48 Anisocytosis 1+ 03/13/22 03:48 Microcytosis Not Reportable 03/13/22 03:48 Macrocytosis Not Reportable 03/13/22 03:48 Spherocytes Not Reportable 03/13/22 03:48 Pappenheimer Bodies Not Reportable 03/13/22 03:48 Sickle Cells Not Reportable 03/13/22 03:48 Target Cells Not Reportable 03/13/22 03:48 Tear Drop Cells Not Reportable 03/13/22 03:48 Ovalocytes Not Reportable 03/13/22 03:48 Helmet Cells Not Reportable 03/13/22 03:48 [place] Bodies Not Reportable 03/13/22 03:48 [place] Rings Not Reportable 03/13/22 03:48 [place] Cells Not Reportable 03/13/22 03:48 Bite Cells Not Reportable 03/13/22 03:48 Crenated Cell Not Reportable 03/13/22 03:48 Elliptocytes Not Reportable 03/13/22 03:48 Acanthocytes (Spur) Not Reportable 03/13/22 03:48 Rouleaux Not Reportable 03/13/22 03:48 Hemoglobin C Crystals Not Reportable 03/13/22 03:48 Schistocytes Not Reportable 03/13/22 03:48 Malaria parasites Not Reportable 03/13/22 03:48 [place] Bodies Not Reportable 03/13/22 03:48 Hem Pathologist Commnt No 03/13/22 03:48 Sodium 140 mmol/L (137-145) 03/14/22 05:24 Potassium 3.7 mmol/L (3.6-5.0) 03/14/22 05:24 Chloride 103.7 mmol/L (98-107) 03/14/22 05:24 Carbon Dioxide 23 mmol/L (22-30) 03/14/22 05:24 Anion Gap 17 mmol/L 03/14/22 05:24 BUN 17 mg/dL (7-17) 03/14/22 05:24 Creatinine 1.1 mg/dL (0.6-1.2) 03/14/22 05:24 Estimated GFR > 60 ml/min 03/14/22 05:24 BUN/Creatinine Ratio 15 % 03/14/22 05:24 Glucose 97 mg/dL (65-100) 03/14/22 05:24 POC Glucose 91 mg/dL (70-105) 03/17/22 07:26 Lactic Acid 0.80 mmol/L (0.7-2.0) 03/13/22 13:14 Calcium 8.9 mg/dL (8.4-10.2) 03/14/22 05:24 Total Bilirubin 0.30 mg/dL (0.1-1.2) 03/14/22 05:24 AST 9 units/L (5-40) 03/14/22 05:24 ALT 14 units/L (7-56) 03/14/22 05:24 Alkaline Phosphatase 109 units/L (35-129) 03/14/22 05:24 Total Protein 6.8 g/dL (6.3-8.2) 03/14/22 05:24 Albumin 3.3 g/dL (3.9-5) L 03/14/22 05:24 Albumin/Globulin Ratio 0.9 % 03/14/22 05:24 Lipase 51 units/L (13-60) 03/13/22 13:14 Urine Color Yellow (Yellow) 03/13/22 Unknown Urine Turbidity Slightly-cloudy (Clear) 03/13/22 Unknown Urine pH 5.0 (5.0-7.0) 03/13/22 Unknown Ur Specific [place] 1.015 (1.003-1.030) 03/13/22 Unknown Urine Protein <15 mg/dl mg/dL (Negative) 03/13/22 Unknown Urine Glucose (UA) Neg mg/dL (Negative) 03/13/22 Unknown Urine Ketones Neg mg/dL (Negative) 03/13/22 Unknown Urine Blood Neg (Negative) 03/13/22 Unknown Urine Nitrite Neg (Negative) 03/13/22 Unknown Urine Bilirubin Neg (Negative) 03/13/22 Unknown Urine Urobilinogen < 2.0 mg/dL (<2.0) 03/13/22 Unknown Ur Leukocyte Esterase Neg (Negative) 03/13/22 Unknown Urine WBC (Auto) 6.0 /HPF (0.0-6.0) 03/13/22 Unknown Urine RBC (Auto) 3.0 /HPF (0.0-6.0) 03/13/22 Unknown U Epithel Cells (Auto) 3.0 /HPF (0-13.0) 03/13/22 Unknown Hyaline Casts 26 /LPF 03/13/22 Unknown Urine Mucus Few /HPF 03/13/22 Unknown Microbiology: Microbiology 03/13/22 13:14 Peripheral/Venous Blood Culture - Preliminary NO GROWTH AFTER 72 HOURS 03/13/22 13:14 Peripheral/Venous Blood Culture - Preliminary NO GROWTH AFTER 72 HOURS Wong/IV: Voiding Method Toilet Active Medications - Current Medications Current Medications: Generic Name Dose Route Start Last Admin Trade Name Freq PRN Reason Stop Dose Admin Acetaminophen 650 mg 03/13/22 20:35 Acetaminophen 650 Mg Rect Supp [place] Q4H PRN Pain MILD(1-3)/Fever >100.5/PARRA Heparin Sodium (Porcine) 5,000 unit 03/13/22 22:00 03/17/22 09:08 Heparin 5,000 Unit/1 Ml Vial SUB-Q 5,000 unit Q12HR ELIZABET Administration Hydromorphone HCl 0.5 mg 03/13/22 20:35 03/17/22 09:08 Hydromorphone 0.5 Mg/0.5 Ml Inj IV 0.5 mg Q3H PRN Administration Pain , Severe (7-10) Sodium Chloride 1,000 mls @ 75 mls/hr 03/13/22 20:45 03/16/22 20:40 Nacl 0.9% 1000 Ml IV Infused DIRECT ELIZABET Infusion Metronidazole 500 mg in 100 mls @ 100 mls/hr 03/13/22 22:00 03/17/22 05:36 Flagyl 500 Mg/100 Ml IV 03/20/22 14:59 100 mls/hr Q8HR ELIZABET Administration Protocol Ceftriaxone Sodium 2 gm in 100 mls @ 200 mls/hr 03/14/22 14:00 03/16/22 20:41 Rocephin/Ns 2 Gm/100 Ml IV 03/19/22 14:29 Infused Q24H ELIZABET Infusion Protocol Metoclopramide HCl 10 mg 03/13/22 20:35 Metoclopramide 10 Mg/2 Ml Inj IV Q6H PRN Nausea And Vomiting Morphine Sulfate 2 mg 03/13/22 20:35 03/17/22 03:24 Morphine 2 Mg/1 Ml Inj IV 2 mg Q4H PRN Administration Pain, Moderate (4-6) Ondansetron HCl 4 mg 03/13/22 20:35 03/17/22 03:26 Ondansetron 4 Mg/2 Ml Inj IV 4 mg Q3H PRN Administration Nausea And Vomiting Sodium Chloride 10 ml 03/13/22 22:00 03/17/22 09:09 Sodium Chloride 0.9% 10 Ml Flush Syringe IV 03/23/22 23:59 10 ml BID ELIZABET Administration Sodium Chloride 10 ml 03/13/22 20:35 Sodium Chloride 0.9% 10 Ml Flush Syringe IV PRN PRN LINE FLUSH
[2022-03-17 14:08] LABS: Basophils # (Auto) 0.1 K/mm3 (0.0-0.1); Eosinophils # (Auto) 0.4 K/mm3 (0.0-0.4); Eosinophils % (Auto) 3.4 % (0.0-4.3); Hematocrit 26.6 % (30.3-42.9); Hemoglobin 8.4 gm/dl (10.1-14.3); Lymphocytes # (Auto) 2.7 K/mm3 (1.2-5.4); Lymphocytes % (Auto) 24.5 % (13.4-35.0); Mean Corpuscular HGB Conc 32 % (30-34); Mean Corpuscular Volume 81 fl (79-97); Monocytes # (Auto) 0.7 K/mm3 (0.0-0.8); Monocytes % (Auto) 6.7 % (0.0-7.3); Platelet Count 336 K/mm3 (140-440); Red Blood Count 3.29 M/mm3 (3.65-5.03); Red Cell Distribution Width 16.3 % (13.2-15.2)
[2022-03-17] MEDS: cefTRIAXone/NS 2 GM/100 ML 2 GM/100 ML BAG IV SCH (15:11)
[2022-03-17] MEDS: SODIUM CHLORIDE 0.9% 1000 ML 1,000 ML IV SCH (15:12)
[2022-03-18] MEDS: metroNIDAZOLE/NS 500 MG/100 ML 500 MG/100 ML BAG IV SCH ×3 (06:09→21:29)
[2022-03-18] MEDS: MORPHINE 2 MG/1 ML INJ IV PRN ×3 (08:51→23:21)
[2022-03-18] MEDS: HEPARIN 5,000 UNIT/1 ML VIAL SUB-Q SCH ×2 (09:18→21:29)
[2022-03-18] MEDS: SODIUM CHLORIDE 0.9% 1000 ML 1,000 ML IV SCH (14:35)
[2022-03-18] MEDS: cefTRIAXone/NS 2 GM/100 ML 2 GM/100 ML BAG IV SCH (14:35)
--- NOTE | 2022-03-18 15:58 | Progress Note ---
Assessment and Plan 61-year-old -[place] lady with sigmoid diverticulitis. Agree with plans for limited p.o. intake, clear liquids should be appropriate at this time. IV antibiotics and IV fluids. Patient will need to stay this weekend on IV antibiotics until advance to soft diet. She continues abdominal pain we will continue with full liquid diet until tomorrow and reassess the pain. We will continue to follow patient with you. Subjective Date of service: 03/18/22 Patient Reports: Positive: still having pain Narrative: Patient will need to stay this weekend on IV antibiotics until advance to soft diet. She continues abdominal pain we will continue with full liquid diet until tomorrow and reassess the pain. Objective Vital Signs - 12hr 03/18/22 03/18/22 05:44 11:00 Temperature 97.2 F L Pulse Rate 76 Respiratory 19 Rate Blood Pressure 115/43 O2 Sat by Pulse 95 98 Oximetry - Labs 03/17/22 13:58 03/14/22 05:24
[2022-03-19] MEDS: metroNIDAZOLE/NS 500 MG/100 ML 500 MG/100 ML BAG IV SCH ×3 (05:57→22:34)
[2022-03-19] MEDS: SODIUM CHLORIDE 0.9% 1000 ML 1,000 ML IV SCH (05:57)
--- NOTE | 2022-03-19 07:52 | Progress Note ---
Assessment and Plan - Patient Problems (1) SIRS (systemic inflammatory response syndrome) Current Visit: Yes Status: Acute Plan to address problem: Patient with high white count Consistent with systemic inflammatory response syndrome Patient has diverticulitis (2) Diverticulitis of sigmoid colon Current Visit: Yes Status: Acute Plan to address problem: Keep patient n.p.o. IV Zosyn and IV Flagyl Conservative treatment Surgery consult requested (3) Hypertension Current Visit: Yes Status: Chronic Qualifiers: Hypertension type: primary hypertension Qualified Code(s): I10 - Essential (primary) hypertension Plan to address problem: Catapres patch if necessary (4) DVT prophylaxis Current Visit: Yes Status: Acute Plan to address problem: On heparin and GI prophylaxis (5) Advance care planning Current Visit: Yes Status: Acute Plan to address problem: Disease education conducted, care plan discussed, diagnosis discussed, prognosis discussed and patient acknowledges understanding with care plan. +30 minutes. Subjective Date of service: 03/18/22 Objective - Constitutional Vitals: Vital Signs - 12hr 03/18/22 03/18/22 03/19/22 21:27 21:34 04:48 Temperature 98.1 F 97.4 F L Pulse Rate 77 60 Respiratory 18 18 Rate Blood Pressure 146/67 135/51 O2 Sat by Pulse 93 93 96 Oximetry General appearance: Present: no acute distress, well-nourished - EENT Eyes: PERRL, EOM intact ENT: hearing intact, clear oral mucosa Ears: bilateral: normal - Neck Neck: supple, normal ROM - Respiratory Respiratory effort: normal Respiratory: bilateral: CTA - Breasts Breasts: normal - Cardiovascular Rhythm: regular Heart Sounds: Present: S1 & S2. Absent: gallop, rub Extremities: pulses intact, No edema, normal color, Full ROM - Gastrointestinal General gastrointestinal: Present: soft, non-tender, non-distended, normal bowel sounds - Genitourinary Female genitourinary: normal - Integumentary Integumentary: clear, warm, dry - Musculoskeletal Musculoskeletal: 1, strength equal bilaterally - Neurologic Neurologic: moves all extremities - Psychiatric Psychiatric: memory intact, appropriate mood/affect, intact judgment & insight - Labs CBC & Chem 7: 03/17/22 13:58 03/14/22 05:24
[2022-03-19] MEDS: HEPARIN 5,000 UNIT/1 ML VIAL SUB-Q SCH ×2 (09:31→22:34)
[2022-03-19] MEDS: HYDROmorphone 0.5 MG/0.5 ML INJ IV PRN (09:42)
[2022-03-19] MEDS: cefTRIAXone/NS 2 GM/100 ML 2 GM/100 ML BAG IV SCH (13:03)
--- NOTE | 2022-03-19 13:20 | Progress Note ---
Assessment and Plan 61-year-old female with acute uncomplicated sigmoid diverticulitis Pt stable. Neymar CLD. Pain controlled. Afebrile. Plan: 1. Adv to FLD for dinner. Will reeval in am. If continues to improve will adv to soft diet. 2. stop IVF 3. continue IV abx 4. prn pain control - add PO [place] 5. OOB/ambulate 6. DVT ppx Possible dc planning tomorrow depending on clinical progress Thank you, please call with questions. Subjective Date of service: 03/19/22 Narrative: Patient seen and examined. States she is feeling better today. Complains of persistent left lower quadrant abdominal pain which is exacerbated by having a bowel movement. She is tolerating clear liquid diet without nausea, vomiting, increased pain. States that the pain medicine helps to alleviate her pain co mpletely. No fevers or chills. Objective Vital Signs - 12hr 03/19/22 03/19/22 03/19/22 04:48 09:00 11:47 Temperature 97.4 F L 97.8 F Pulse Rate 60 67 Respiratory 18 18 Rate Blood Pressure 135/51 134/71 O2 Sat by Pulse 96 96 96 Oximetry - General physical appearance Narrative Exam: Gen.: Awake, alert, oriented x3. No apparent distress ENT: Trachea midline. No lymphadenopathy. No scleral icterus or conjunctival pallor CV: S1, S2 present Respiratory: No audible wheezes Abdomen: Soft, nondistended, mild left lower quadrant tenderness to palpation. Obese. No rebound, rigidity, guarding Extremities: No clubbing, cyanosis, edema - Labs 03/17/22 13:58 03/14/22 05:24
[2022-03-19] MEDS: HYDROcodone/ACETAMINOPHEN 5-325 MG TAB PO PRN ×2 (16:30→22:49)
[2022-03-19] MEDS ORDERED: diphenhydrAMINE 50 MG/ML VIAL IV PRN (20:00)
[2022-03-20 02:09] VITALS: BP 151/76
[2022-03-20] MEDS: metroNIDAZOLE/NS 500 MG/100 ML 500 MG/100 ML BAG IV SCH (05:42)
--- NOTE | 2022-03-20 09:05 | Progress Note ---
Assessment and Plan 61-year-old female with acute uncomplicated sigmoid diverticulitis Pt stable. Ejremias FLD. Afebrile Plan: 1. Adv to soft diet for lunch 2. abx - will transition to oral cipro/flagyl x7 days upon dc 3. prn PO pain control 4. OOB/ambulate 5. DVT ppx 6. Ok to dc home if jeremias soft diet this afternoon. Pt given instructions to follow up with Dr. Melton in 7 days. RX for cipro/flagyl sent to patient's [facility] and RX for [place] left on chart. Dr. Fregoso notified. Thank you, please call with questions. Subjective Date of service: 03/20/22 Narrative: Pt seen and examined. Denies abd pain. c/o sinus congestion. States she did not rest well last night. Afebrile. Jeremias FLD. +BMs which she states were not painful. Objective - General physical appearance Narrative Exam: Gen.: Awake, alert, oriented x3. No apparent distress ENT: Trachea midline. No lymphadenopathy. No scleral icterus or conjunctival pallor CV: S1, S2 present Respiratory: No audible wheezes Abdomen: Soft, nondistended, NT. Obese. No rebound, rigidity, guarding Extremities: No clubbing, cyanosis, edema - Labs 03/17/22 13:58 03/14/22 05:24
[2022-03-20] MEDS: HEPARIN 5,000 UNIT/1 ML VIAL SUB-Q SCH (09:39)
[2022-03-20] MEDS: HYDROmorphone 0.5 MG/0.5 ML INJ IV PRN (09:40)
--- NOTE | 2022-03-20 12:04 | Discharge Summary ---
Providers - Providers Date of Admission: 03/13/22 20:35 Date of discharge: 03/20/22 Attending physician: MAYITO YIN 03/13/22 15:38 Consult to Physician [CONS] Urgent Comment: Consulting Provider: MARIAN SWANSON Physician Instructions: Reason For Exam: Acute sigmoid diverticulitis 03/16/22 09:05 Occupational Therapy Evaluate and Treat [CONS] Stat Comment: Eval and Treat Reason For Exam: Occupational Therapy Physical Therapy Evaluation and Treat [CONS] Stat Comment: Eval and Treat Reason For Exam: Physical Therapy Primary care physician: IVAN TRIPP Hospitalization Condition: Stable Disposition: 01 HOME / SELF CARE / HOMELESS - Discharge Diagnoses (1) SIRS (systemic inflammatory response syndrome) Status: Acute (2) Diverticulitis of sigmoid colon Status: Acute (3) Hypertension Status: Chronic Qualifiers: Hypertension type: primary hypertension Qualified Code(s): I10 - Essential (primary) hypertension (4) DVT prophylaxis Status: Acute (5) Advance care planning Status: Acute Core Measure Documentation - Palliative Care Palliative Care/ Comfort Measures: Not Applicable - Core Measures Any of the following diagnoses?: none Exam - Constitutional Vitals: Temp Pulse Resp BP Pulse Ox 98.1 F 70 18 151/76 98 03/19/22 20:50 03/19/22 20:50 03/19/22 20:50 03/19/22 20:50 03/19/22 21:00 General appearance: Present: no acute distress, well-nourished - EENT Eyes: Present: PERRL ENT: hearing intact, clear oral mucosa - Neck Neck: Present: supple, normal ROM - Respiratory Respiratory effort: normal Respiratory: bilateral: CTA - Cardiovascular Heart Sounds: Present: S1 & S2. Absent: rub, click - Extremities Extremities: pulses symmetrical, No edema Peripheral Pulses: within normal limits - Abdominal General gastrointestinal: Present: soft, non-tender, non-distended, normal bowel sounds Female genitourinary: Present: normal - Integumentary Integumentary: Present: clear, warm, dry - Musculoskeletal Musculoskeletal: gait normal, strength equal bilaterally - Psychiatric Psychiatric: appropriate mood/affect, intact judgment & insight - Neurologic Neurologic: CNII-XII intact, moves all extremities Plan Activity: no restrictions Diet: low salt Follow up with: IVAN TRIPP MD [Primary Care Provider] - 3-5 Days MARIAN SWANSON MD [Staff Physician] - 7 Days Prescriptions: Ciprofloxacin HCl 500 mg PO BID 7 Days #14 tab metroNIDAZOLE [Flagyl] 500 mg PO Q8HR #21 tablet HYDROcodone/APAP 5-325 [[place] 5-325 mg TAB] 1 each PO Q6H PRN #10 tablet PRN Reason: Pain , Severe (7-10)
== END 2022-03-20 13:27 | disposition home or self-care (01) | DRG 872 ==
LOC: ED 03:17 → 3A 20:35
PROVIDERS: ADMIT Internal Medicine; ATTEND Internal Medicine
DX: A41.9 Sepsis, unspecified organism (principal); K57.32 Diverticulitis of large intestine without perforation or abscess without bleeding; E44.0 Moderate protein-calorie malnutrition; Z68.37 Body mass index [BMI] 37.0-37.9, adult; I10 Essential (primary) hypertension; Z90.49 Acquired absence of other specified parts of digestive tract; Z82.49 Family history of ischemic heart disease and other diseases of the circulatory system; Z88.2 Allergy status to sulfonamides
CPT/HCPCS: 36415; 74177; 80053; 81001; 82140; 82962; 83690; 85007; 85025; 87040; G0378; J7517; J0696; J1170; J1200; J1644; J1956; J2270; J2405; J2543; J7030; Q9967